=== PATIENT | female | born 1935 | race Caucasian/White ===

== ENCOUNTER 2018-08-21 22:18 | Inpatient (IN) | payer MEDICARE, OTHER ==
[~2018-08-21] VITALS: Ht 162.6 cm; Wt 69.6 kg
--- NOTE | 2018-08-21 22:31 | NUR ---
ED Nurse Note: [place] [facility] [place], c/c dizziness, per EMS report, security called 911 because pt was feeling dizzy and weak, initially ems assisted pt to home but pt was unable to walk to house and was brought to ED. pt reports she's been having dizziness for past 6 months. pt AA&ox4, gcs=15, skin warm and dry, resp even and unlabored on RA, noted urine on pants, possible urinary incontinence. vss. nsr on laboratory monitor, will wait for further orders.
[2018-08-21] MEDS ORDERED: Meclizine 25mg tab ORAL ONE (22:45)
[2018-08-21] MEDS ORDERED: Metoclopramide 10mg/2ml Inj IVP ONE (22:45)
[2018-08-21 22:50] VITALS: BP 120/61
--- NOTE | 2018-08-21 23:00 | NUR ---
ED Nurse Note: blood and urine specimen sent to lab.
[2018-08-21] MEDS ORDERED: Metoclopramide 10mg/2ml Inj ONE (23:02)
--- NOTE | 2018-08-21 23:05 | NUR ---
ED Nurse Note: RECEIVED PT FROM MAI GONZALEZ. PATIENT RESTING IN BED WITH NAD. VSS. AO4. EKG COMPLETED BY [employer]. WILL CONTINUE TO MONITOR.
--- NOTE | 2018-08-21 23:08 | NUR ---
ED Nurse Note: report given to RN Vamshi Tejada and endorse care, pt NSR on conveyor monitor, vss, resp even and unlabored on RA, iv intact and patent, endorsed EKG. belongings at the bedside. all safety precautions in place, pt was provided w/ extra blanket for comfort.
[2018-08-21 23:09] LABS: BASOPHILS % (AUTO) 1.1 % (0.0-2.0); EOSINOPHILS % (AUTO) 0.8 % (0.0-3.0); HEMATOCRIT 40.8 % (37.0-47.0); HEMOGLOBIN 13.7 G/DL (12.0-16.0); LYMPHOCYTES % (AUTO) 28.7 % (20.0-45.0); MEAN CORPUSCULAR VOLUME 88 FL (80-99); NEUTROPHILS % (AUTO) 63.4 % (45.0-75.0); PLATELET COUNT 234 K/UL (150-450); RED BLOOD COUNT 4.65 M/UL (4.20-5.40); RED CELL DISTRIBUTION WIDTH 12.2 % (11.6-14.8); WHITE BLOOD COUNT 9.6 K/UL (4.8-10.8)
[2018-08-21 23:10] LABS: APPEARANCE,URINE CLEAR; BILIRUBIN, URINE NEGATIVE (NEGATIVE); COLOR,URINE PALE YELLOW; GLUCOSE, URINE (UA) NEGATIVE (NEGATIVE); KETONES,URINE NEGATIVE (NEGATIVE); LEUKOCYTE ESTERASE ,URINE NEGATIVE (NEGATIVE); NITRITE,URINE NEGATIVE (NEGATIVE); PH,URINE 5 (4.5-8.0); PROTEIN,URINE NEGATIVE (NEGATIVE); UROBILINOGEN,URINE NORMAL MG/DL (0.0-1.0)
[2018-08-21 23:21] LABS: ANION GAP 7 mmol/L (5-15); BLOOD UREA NITROGEN 18 mg/dL (7-18); CALCIUM 9.2 MG/DL (8.5-10.1); CARBON DIOXIDE 27 MMOL/L (21-32); CHLORIDE 105 MMOL/L (98-107); CREATININE 0.6 MG/DL (0.55-1.30); POTASSIUM 4.3 MMOL/L (3.5-5.1); SODIUM 138 MMOL/L (136-145)
[2018-08-21 23:30] LABS: ALANINE AMINOTRANSFERASE 31 U/L (12-78); ALBUMIN 3.4 G/DL (3.4-5.0); ALBUMIN/GLOBULIN RATIO 0.9 (1.0-2.7); ALKALINE PHOSPHATASE 109 U/L (46-116); ASPARTATE AMINO TRANSFERASE 38 U/L (15-37); BILIRUBIN,TOTAL 0.5 MG/DL (0.2-1.0); CREATINE KINASE 110 U/L (26-308)
[2018-08-21 23:56] LABS: CKMB 2.8 NG/ML (0.0-3.6)
[2018-08-22] VITALS (7 sets, daily range): BP systolic 108–140; BP diastolic 48–90
--- NOTE | 2018-08-22 00:50 | Diagnostic Imaging Report ---
EXAM: CT Head Without Intravenous Contrast CLINICAL HISTORY: DIZZY TECHNIQUE: Axial computed tomography images of the head/brain without intravenous contrast. CTDI is 70 mGy and DLP is 1439 mGy-cm. One or more of the following dose reduction techniques were used: automated exposure control, adjustment of the mA and/or kV according to patient size, use of iterative reconstruction technique. COMPARISON: No relevant prior studies available. FINDINGS: Brain: No acute intracranial hemorrhage. Chronic small vessel ischemic changes. Right frontal chronic encephalomalacia. Cannot exclude [id number] ischemia on CT. Followup as clinically indicated. Ventricles: Unremarkable. No ventriculomegaly. Bones/joints: Right craniotomy. No acute fracture. Soft tissues: Unremarkable. Sinuses: Left maxillary sinus polyp or retention cyst. Mastoid air cells: Unremarkable as visualized. IMPRESSION: No acute intracranial hemorrhage or skull fracture.
--- NOTE | 2018-08-22 00:52 | Diagnostic Imaging Report ---
EXAM: XR Chest, 1 View CLINICAL HISTORY: DIZZY TECHNIQUE: Frontal view of the chest. COMPARISON: No relevant prior studies available. FINDINGS: Lungs: Left midlung and right lower lung mild pulmonary edema/infiltrates. Pleural space: Unremarkable. No pneumothorax. Heart: Unremarkable. No cardiomegaly. Mediastinum: Unremarkable. Bones/joints: Unremarkable. IMPRESSION: Left midlung and right lower lung mild pulmonary edema/infiltrates.
--- NOTE | 2018-08-22 01:05 | NUR ---
ED Nurse Note: lactic acid drawn; sent down to lab.
--- NOTE | 2018-08-22 01:45 | NUR ---
ED Nurse Note: UNABLE TO DRAW BLOOD X3. CALLED LAB FOR DRAW.
--- NOTE | 2018-08-22 01:56 | NUR ---
ED Nurse Note: lab at bedside
--- NOTE | 2018-08-22 02:40 | NUR ---
ED Nurse Note: belongings list completed with patient. witnessed by dre blackwood and security myron. pt unable to sign. pt belongings include: yellow ring, hat, scarf, pants, shoes.
--- NOTE | 2018-08-22 02:49 | NUR ---
ED Nurse Note: report given to galen urrutia rn. patient to be admitted to med surg 412-2 under the care of md haily.
--- NOTE | 2018-08-22 02:50 | NUR ---
ED Nurse Note: endorsed pt increasing confusion to receiving rn. per burnt lime drawer, pt room to be changed closer to station; med surg unit reassigning pt rooms; will call back with new room number.
[2018-08-22] MEDS ORDERED: LEVAQUIN750 MG ORAL (03:17)
[2018-08-22] MEDS ORDERED: DiphenhydrAMINE 50mg/ml Inj IVP ONE (03:45)
[2018-08-22] MEDS ORDERED: LORazepam Inj 2mg/ml 1ml IV ONE (03:45)
--- NOTE | 2018-08-22 03:45 | NUR ---
ED Nurse Note: pt increasingly agitated and physically combative. refuses to stay in chair or bed. remains dizzy; unstable gait. ertech remains with patient. ermd made aware.
--- NOTE | 2018-08-22 05:01 | NUR ---
ED Nurse Note: New IV placed on left wrist 22 ga.
--- NOTE | 2018-08-22 05:01 | NUR ---
TRANSFER TO FLOOR: Patient transferred to [place] [id number] as ordered, per md haily. report given prior to transfer. belongings list completed with receiving rn. patient in stable condition.
--- NOTE | 2018-08-22 05:03 | Emergency Room Report ---
History of Present Illness General Chief Complaint: Dizziness Source: Patient, EMS Present Illness HPI 83-year-old female presents ED for evaluation. Brought in by EMS for evaluation of dizziness. She states that she is been having dizziness for the last several months but was worse today after having dinner. Describes room spinning sensation worse with sudden head movements. Denies headache. Denies chest pain or shortness of breath. Denies fevers or chills. No other aggravating relieving factors. Denies any other associated symptoms Allergies: Coded Allergies: PENICILLINS (Unverified Allergy, Unknown, 08/21/18) Patient History Past Medical History: psych hx Past Surgical History: none Pertinent Family History: none Social History: Denies: smoking, alcohol use, drug use Now: No Immunizations: UTD Reviewed Nursing Documentation: PMH: Agreed; PSxH: Agreed Nursing Documentation-PMH History Of Psychiatric Problem: Yes - dementia Hx Cerebrovascular Accident: Yes - Glaucoma, dizzy Review of Systems All Other Systems: negative except mentioned in HPI Physical Exam Vital Signs Date Time Temp Pulse Resp B/P (MAP) Pulse Ox O2 Delivery O2 Flow Rate FiO2 08/21/18 22:13 97.5 80 16 106/88 (94) 95 Room Air Sp02 EP Interpretation: reviewed, normal General Appearance: no apparent distress, alert, GCS 15, non-toxic Head: normocephalic, atraumatic Eyes: bilateral eye normal inspection, bilateral eye PERRL ENT: hearing grossly normal, normal pharynx, no angioedema, normal voice Neck: full range of motion, supple/symm/no masses Respiratory: chest non-tender, lungs clear, normal breath sounds, speaking full sentences Cardiovascular #1: regular rate, rhythm, no edema Cardiovascular #2: 2+ carotid (R), 2+ carotid (L), 2+ radial (R), 2+ radial (L) , 2+ dorsalis pedis (R), 2+ dorsalis pedis (L) Gastrointestinal: normal bowel sounds, non tender, soft, non-distended, no guarding, no rebound Rectal: deferred Genitourinary: normal inspection, no CVA tenderness Musculoskeletal: back normal, gait/station normal, normal range of motion, non- tender Neurologic: alert, oriented x3, responsive, motor strength/tone normal, sensory intact, speech normal Psychiatric: judgement/insight normal, memory normal, mood/affect normal, no suicidal/homicidal ideation Reflexes: 3+ bicep (R), 3+ bicep (L), 3+ tricep (R), 3+ tricep (L), 3+ knee (R) , 3+ knee (L) Skin: normal color, no rash, warm/dry, well hydrated Lymphatic: no adenopathy Medical Decision Making Diagnostic Impression: Primary Impression: Vertigo Additional Impressions: Pneumonia Qualified Codes: J18.9 - Pneumonia, unspecified organism Dementia Qualified Codes: F03.91 - Unspecified dementia with behavioral disturbance ER Course Hospital Course 83 yo F presents c/o dizziness, weakness Differential diagnoses include: OK/unstable angina, arrythmia, dehydration, CVA/ TIA Clinical course Patient placed on stretcher. on case monitor. After initial history and physical I ordered labs, EKG, chest x-ray, IVFs, CT Brain labs reviewed- no leukocytosis, hemoglobin/hematocrit ok, electrolytes okay, troponins negative EKG- NSR, no acute ischemic changes interpreted by me Chest x-ray- L midlung, RLL infiltrates CT brain-unremarkable patient feels weak despite given medications. We will admit. Given antibiotics. during ED course patient became acutely confused. Stated she wanted to leave however cannot provide any details as to where she wanted to go or how she would get there. It appears like . She does not have capacity to leave safely. Given sedation medication here Case discussed with Dr. Ohara and he agreed to accept the patient to his service for further care and support I. I feel this is a highly complex case requiring extensive working including EKG/Rhythm strip, Xray/CT/US, Blood/urine lab work, repeat exams while in ED, and administration of strong opiates/narcotics for pain control, admission to hospital or close patient follow up. Diagnosis - vertigo, pneumonia, dementia admitted to floor in serious condition Labs Test 08/21/18 22:41 08/22/18 01:05 08/22/18 02:40 White Blood Count 9.6 K/UL (4.8-10.8) Red Blood Count 4.65 M/UL (4.20-5.40) Hemoglobin 13.7 G/DL (12.0-16.0) Hematocrit 40.8 % (37.0-47.0) Mean Corpuscular Volume 88 FL (80-99) Mean Corpuscular Hemoglobin 29.4 PG (27.0-31.0) Mean Corpuscular Hemoglobin Concent 33.5 G/DL (32.0-36.0) Red Cell Distribution Width 12.2 % (11.6-14.8) Platelet Count 234 K/UL (150-450) Mean Platelet Volume 6.1 FL (6.5-10.1) Neutrophils (%) (Auto) 63.4 % (45.0-75.0) Lymphocytes (%) (Auto) 28.7 % (20.0-45.0) Monocytes (%) (Auto) 6.0 % (1.0-10.0) Eosinophils (%) (Auto) 0.8 % (0.0-3.0) Basophils (%) (Auto) 1.1 % (0.0-2.0) Urine Color Pale yellow Urine Appearance Clear Urine pH 5 (4.5-8.0) Urine Specific [place] 1.010 (1.005-1.035) Urine Protein Negative (NEGATIVE) Urine Glucose (UA) Negative (NEGATIVE) Urine Ketones Negative (NEGATIVE) Urine Blood Negative (NEGATIVE) Urine Nitrite Negative (NEGATIVE) Urine Bilirubin Negative (NEGATIVE) Urine Urobilinogen Normal MG/DL (0.0-1.0) Urine Leukocyte Esterase Negative (NEGATIVE) Sodium Level 138 MMOL/L (136-145) Potassium Level 4.3 MMOL/L (3.5-5.1) Chloride Level 105 MMOL/L (98-107) Carbon Dioxide Level 27 MMOL/L (21-32) Anion Gap 7 mmol/L (5-15) Blood Urea Nitrogen 18 mg/dL (7-18) Creatinine 0.6 MG/DL (0.55-1.30) Estimat Glomerular Filtration Rate mL/min (>60) Glucose Level 89 MG/DL (74-106) Calcium Level 9.2 MG/DL (8.5-10.1) Total Bilirubin 0.5 MG/DL (0.2-1.0) Aspartate Amino Transf (AST/SGOT) 38 U/L (15-37) Alanine Aminotransferase (ALT/SGPT) 31 U/L (12-78) Alkaline Phosphatase 109 U/L (46-116) Total Creatine Kinase 110 U/L (26-308) Creatine Kinase MB 2.8 NG/ML (0.0-3.6) Creatine Kinase MB Relative Index 2.5 Troponin I 0.000 ng/mL (0.000-0.056) Total Protein 7.0 G/DL (6.4-8.2) Albumin 3.4 G/DL (3.4-5.0) Globulin 3.6 g/dL Albumin/Globulin Ratio 0.9 (1.0-2.7) Lactic Acid Level 2.80 mmol/L (0.4-2.0) 3.10 mmol/L (0.66-2.22) EKG Diagnostic Results Rate: normal Rhythm: NSR ST Segments: no acute changes ASA given to the pt in ED: No Rhythm Strip Diag. Results EP Interpretation: yes Rhythm: NSR, no PVC's, no ectopy Chest X-Ray Diagnostic Results Chest X-Ray Diagnostic Results : Chest X-Ray Ordered: Yes # of Views/Limited/Complete: 1 View Indication: Other EP Interpretation: Yes Interpretation: no pneumothorax, other - L midlung, RLL infiltrates Impression: Other - pneumonia Electronically Signed by: Electronically signed by Jeff Clinton MD CT/MRI/US Diagnostic Results CT/MRI/US Diagnostic Results : Imaging Test Ordered: CT Head Impression no acute process Last Vital Signs Date Time Temp Pulse Resp B/P (MAP) Pulse Ox O2 Delivery O2 Flow Rate FiO2 08/22/18 02:55 97.5 85 16 114/77 98 Room Air Status: improved Disposition: ADMITTED INPATIENT Condition: Serious Scripts Levofloxacin* (LEVAQUIN*) 750 Mg Tablet 750 MG ORAL DAILY for 7 Days, TAB Prov: Jeff Clinton MD 08/22/18 Referrals: NON PHYSICIAN (PCP) Jeff Clinton MD Aug 22, 2018 05:03
--- NOTE | 2018-08-22 05:15 | NUR ---
NURSE NOTES: Pt is transferred from ER in stable condition on [facility]. Vitals stable. Pt is confused but verbal. Skin intact. IV access on left fore arm is intact and asymptomatic. Dr. Montenegro's office is called for admission orders. Pt's belongings verified with witness of charge nurse Dimple Diaz.Pt refused to send valuables for safekeeping. Pt is oriented to the room. Pt is at risk for fall, Fall precaution implemented. Bed alarm on. Bed locked low in position,side rails up and call light within reach. Pt will be monitored.
--- NOTE | 2018-08-22 06:00 | NUR ---
NURSE NOTES: Pt is in bed, asleep. No acute distress noted. Dr. sharif Silva called back with admission orders. Orders acknowledged.
--- NOTE | 2018-08-22 07:25 | NUR ---
HAND-OFF: Report given to MAI Ghosh. Informed that pt is fall risk.
--- NOTE | 2018-08-22 07:30 | NUR ---
NURSE NOTES: Patient received in bed. Asleep at this time and patient wakes up with voice and touch. No signs and symptoms of pain or discomfort. IV intact with saline lock. Bed is in lowest position and locked. Call light within reach. Bed alarm on. Will continue to monitor
[2018-08-22 08:19] LABS: EOSINOPHILS % (AUTO) 0.5 % (0.0-3.0); HEMATOCRIT 40.9 % (37.0-47.0); HEMOGLOBIN 13.6 G/DL (12.0-16.0); LYMPHOCYTES % (AUTO) 13.4 % (20.0-45.0); MEAN CORPUSCULAR VOLUME 91 FL (80-99); NEUTROPHILS % (AUTO) 79.2 % (45.0-75.0); PLATELET COUNT 211 K/UL (150-450); RED BLOOD COUNT 4.48 M/UL (4.20-5.40); RED CELL DISTRIBUTION WIDTH 12.6 % (11.6-14.8); WHITE BLOOD COUNT 8.8 K/UL (4.8-10.8)
[2018-08-22 08:49] LABS: ALANINE AMINOTRANSFERASE 26 U/L (12-78); ALBUMIN 3.1 G/DL (3.4-5.0); ALKALINE PHOSPHATASE 102 U/L (46-116); ANION GAP 10 mmol/L (5-15); ASPARTATE AMINO TRANSFERASE 32 U/L (15-37); BILIRUBIN,TOTAL 0.5 MG/DL (0.2-1.0); BLOOD UREA NITROGEN 15 mg/dL (7-18); CARBON DIOXIDE 26 MMOL/L (21-32); CHLORIDE 106 MMOL/L (98-107); CREATININE 0.6 MG/DL (0.55-1.30); SODIUM 142 MMOL/L (136-145)
[2018-08-22] MEDS: Heparin 5000 units/ml inj SUBQ SCH ×2 (09:00→20:22)
--- NOTE | 2018-08-22 09:00 | NUR ---
NURSE NOTES: Unable to administer azithromycin and heparin. Patient opens her eyes to voice and touch but she falls asleep and not fully awake @ this time. Will continue to monitor.V/S stable.
[2018-08-22] MEDS ORDERED: Azithromycin 250mg tab ORAL SCH ×2 (09:15→15:30)
--- NOTE | 2018-08-22 13:43 | History and Physical ---
History of Present Illness General Date patient seen: Aug 22, 2018 Time patient seen: 09:00 Reason for Hospitalization: Dizziness Present Illness HPI 83-year-old female presents ED for evaluation. Brought in by EMS for evaluation of dizziness. She stated to the ED attending that she was having dizziness for the last several months but was worse last night after having dinner. Described room spinning sensation worse with sudden head movements. Denies headache. Denies chest pain or shortness of breath. Denies fevers or chills. No other aggravating relieving factors. Denies any other associated symptoms. in the ED, CT head was done and negative for acute pathology. CXR showed evidence of RLL infiltrate and Levofloxacin was given. Admission was requested. Today, the patient feels better and denies shortness of breath, fever or chills. Allergies: Coded Allergies: PENICILLINS (Unverified Allergy, Unknown, 08/21/18) Medication History Scheduled Levofloxacin* (Levaquin*), 750 MG ORAL DAILY Patient History Healthcare decision maker Resuscitation status Full Code Advanced Directive on File Review of Systems Neurological: Reports: dizziness Physical Exam General Appearance: WD/WN, no apparent distress Lines, tubes and drains: PICC HEENT: normocephalic, atraumatic Neck: non-tender Respiratory/Chest: chest wall non-tender, lungs clear Cardiovascular/Chest: normal rate, regular rhythm Abdomen: normal bowel sounds, soft Extremities: normal range of motion Skin Exam: normal pigmentation 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 Last 24 Hour Vital Signs Date Time Temp Pulse Resp B/P (MAP) Pulse Ox O2 Delivery O2 Flow Rate FiO2 08/22/18 12:00 98.7 77 15 117/54 (75) 95 08/22/18 09:00 Room Air 08/22/18 08:00 97.6 82 20 133/51 (78) 96 08/22/18 05:43 Room Air 08/22/18 05:29 98.9 99 20 140/90 (107) 97 08/22/18 05:01 97.5 76 14 108/69 99 Room Air 08/22/18 02:55 97.5 85 16 114/77 98 Room Air 08/22/18 00:34 97.5 68 14 109/76 100 Room Air 08/21/18 22:50 97.5 74 16 120/61 100 Room Air 08/21/18 22:50 74 18 Room Air 08/21/18 22:13 97.5 80 16 106/88 (94) 95 Room Air Intake and Output 08/21/18 08/22/18 19:00 07:00 Intake Total 240 ml Balance 240 ml Intake Oral 240 ml # Voids 2 Laboratory Tests Test 08/21/18 22:41 08/22/18 01:05 08/22/18 02:40 08/22/18 07:45 White Blood Count 9.6 K/UL (4.8-10.8) 8.8 K/UL (4.8-10.8) Red Blood Count 4.65 M/UL (4.20-5.40) 4.48 M/UL (4.20-5.40) Hemoglobin 13.7 G/DL (12.0-16.0) 13.6 G/DL (12.0-16.0) Hematocrit 40.8 % (37.0-47.0) 40.9 % (37.0-47.0) Mean Corpuscular Volume 88 FL (80-99) 91 FL (80-99) Mean Corpuscular Hemoglobin 29.4 PG (27.0-31.0) 30.4 PG (27.0-31.0) Mean Corpuscular Hemoglobin Concent 33.5 G/DL (32.0-36.0) 33.3 G/DL (32.0-36.0) Red Cell Distribution Width 12.2 % (11.6-14.8) 12.6 % (11.6-14.8) Platelet Count 234 K/UL (150-450) 211 K/UL (150-450) Mean Platelet Volume 6.1 FL (6.5-10.1) L 6.6 FL (6.5-10.1) Neutrophils (%) (Auto) 63.4 % (45.0-75.0) 79.2 % (45.0-75.0) H Lymphocytes (%) (Auto) 28.7 % (20.0-45.0) 13.4 % (20.0-45.0) L Monocytes (%) (Auto) 6.0 % (1.0-10.0) 6.0 % (1.0-10.0) Eosinophils (%) (Auto) 0.8 % (0.0-3.0) 0.5 % (0.0-3.0) Basophils (%) (Auto) 1.1 % (0.0-2.0) 1.0 % (0.0-2.0) Urine Color Pale yellow Urine Appearance Clear Urine pH 5 (4.5-8.0) Urine Specific [place] 1.010 (1.005-1.035) Urine Protein Negative (NEGATIVE) Urine Glucose (UA) Negative (NEGATIVE) Urine Ketones Negative (NEGATIVE) Urine Blood Negative (NEGATIVE) Urine Nitrite Negative (NEGATIVE) Urine Bilirubin Negative (NEGATIVE) Urine Urobilinogen Normal MG/DL (0.0-1.0) Urine Leukocyte Esterase Negative (NEGATIVE) Sodium Level 138 MMOL/L (136-145) 142 MMOL/L (136-145) Potassium Level 4.3 MMOL/L (3.5-5.1) 4.0 MMOL/L (3.5-5.1) Chloride Level 105 MMOL/L (98-107) 106 MMOL/L (98-107) Carbon Dioxide Level 27 MMOL/L (21-32) 26 MMOL/L (21-32) Anion Gap 7 mmol/L (5-15) 10 mmol/L (5-15) Blood Urea Nitrogen 18 mg/dL (7-18) 15 mg/dL (7-18) Creatinine 0.6 MG/DL (0.55-1.30) 0.6 MG/DL (0.55-1.30) Estimat Glomerular Filtration Rate mL/min (>60) mL/min (>60) Glucose Level 89 MG/DL (74-106) 83 MG/DL (74-106) Calcium Level 9.2 MG/DL (8.5-10.1) 9.0 MG/DL (8.5-10.1) Total Bilirubin 0.5 MG/DL (0.2-1.0) 0.5 MG/DL (0.2-1.0) Aspartate Amino Transf (AST/SGOT) 38 U/L (15-37) H 32 U/L (15-37) Alanine Aminotransferase (ALT/SGPT) 31 U/L (12-78) 26 U/L (12-78) Alkaline Phosphatase 109 U/L (46-116) 102 U/L (46-116) Total Creatine Kinase 110 U/L (26-308) Creatine Kinase MB 2.8 NG/ML (0.0-3.6) Creatine Kinase MB Relative Index 2.5 Troponin I 0.000 ng/mL (0.000-0.056) Total Protein 7.0 G/DL (6.4-8.2) 6.3 G/DL (6.4-8.2) L Albumin 3.4 G/DL (3.4-5.0) 3.1 G/DL (3.4-5.0) L Globulin 3.6 g/dL 3.2 g/dL Albumin/Globulin Ratio 0.9 (1.0-2.7) L 1.0 (1.0-2.7) Lactic Acid Level 2.80 mmol/L (0.4-2.0) H 3.10 mmol/L (0.66-2.22) H Height (Feet): 5 Height (Inches): 4.00 Weight (Pounds): 154 Medications Current Medications Medications (Trade) Dose Ordered Sig/Monica Route PRN Reason Start Time Stop Time Status Last Admin Dose Admin Heparin Sodium (Porcine) (Heparin 5000 units/ml) 5,000 units EVERY 12 HOURS SUBQ 08/22/18 09:00 09/21/18 08:59 Assessment/Plan Assessment/Plan: # Pneumonia CXR with RLL infiltrate. Patient home medication included levofloxacin which was given in the ED. Side effects of this medication include dizziness and will stop it to observe. Start Azithromycin Monitor clinical response. #Dizziness Negative CT head, PT evaluation for recommendations is needed. # Generalized weakness PT evaluation OT evaluation Might need support or transition to SNF if not safe to discharge home. # Penicillin allergy Geri Montgomery MD Aug 22, 2018 13:43
--- NOTE | 2018-08-22 15:00 | NUR ---
NURSE NOTES: Patient is fully awake and consumed late lunch without difficulties, no coughing, afebrile. Patient is ambulatory, unsteady, bed alarm is on and reminded patient to use call light.
--- NOTE | 2018-08-22 19:30 | NUR ---
NURSE NOTES: Pt is in bed, awake and verbal, vitals stable. Pt appears calm. Fall precaution in place. NS running at 100ml/hr. Bed locked low ion position,side rails up and call light within reach. Bed alarm on. Fall precautions implemented. Pt will be monitored.
--- NOTE | 2018-08-22 19:32 | NUR ---
HAND-OFF: Report given to Chris ONEILL.
[2018-08-23] VITALS: BP 139/60
--- NOTE | 2018-08-23 03:00 | NUR ---
NURSE NOTES: Pt is in bed, asleep. No acute distress noted. Pt is much more alert. Pt able to ambulate to the bedside commode with assist. Pt is tolerating pureed diet well.
[2018-08-23 04:00] VITALS: BP 152/67
--- NOTE | 2018-08-23 07:05 | NUR ---
HAND-OFF: Report given to MAI Ghosh.Informed that pt is fall risk.
--- NOTE | 2018-08-23 07:45 | NUR ---
NURSE NOTES: Received patient in bed,awake, alert and oriented x2 and patient is forgetful. Denies any pain or discomfort. Patient is calm and follows direction. Reminded patient to use a call light and bed alarm is on due to patient is forgetful. Bed is in lowest position and locked. Will continue plan of care.
[2018-08-23 08:00] VITALS: BP 137/75
[2018-08-23 08:45] LABS: BASOPHILS % (AUTO) 1.6 % (0.0-2.0); EOSINOPHILS % (AUTO) 1.3 % (0.0-3.0); HEMATOCRIT 39.7 % (37.0-47.0); HEMOGLOBIN 13.4 G/DL (12.0-16.0); LYMPHOCYTES % (AUTO) 35.8 % (20.0-45.0); MEAN CORPUSCULAR VOLUME 91 FL (80-99); MONOCYTES % (AUTO) 5.2 % (1.0-10.0); NEUTROPHILS % (AUTO) 56.2 % (45.0-75.0); PLATELET COUNT 215 K/UL (150-450); RED BLOOD COUNT 4.36 M/UL (4.20-5.40); RED CELL DISTRIBUTION WIDTH 12.7 % (11.6-14.8); WHITE BLOOD COUNT 6.1 K/UL (4.8-10.8)
[2018-08-23 09:00] LABS: ANION GAP 10 mmol/L (5-15); BLOOD UREA NITROGEN 14 mg/dL (7-18); CALCIUM 9.1 MG/DL (8.5-10.1); CARBON DIOXIDE 24 MMOL/L (21-32); CHLORIDE 105 MMOL/L (98-107); CREATININE 0.8 MG/DL (0.55-1.30); POTASSIUM 3.5 MMOL/L (3.5-5.1); SODIUM 139 MMOL/L (136-145)
[2018-08-23] MEDS: Heparin 5000 units/ml inj SUBQ SCH ×2 (09:00→20:25)
--- NOTE | 2018-08-23 09:00 | NUR ---
NURSE NOTES: Patient refused to take heparin and RN re-educated on med and patient understood and said I can walk and no pain so I do not need it now." Patient denies pain or discomfort on her leg, No SOB. Will continue to monitor.
[2018-08-23 12:00] VITALS: BP 157/82
--- NOTE | 2018-08-23 13:20 | NUR ---
NURSE NOTES: Patient requested regular food. Patient has her own teeth and alert and awake. RN spoke to Dr. Montgomery and received order to upgrade diet to regular soft easy chew. Patient also mention that she goes to [facility] pharmacy on and . RN followed with the pharmacy but the pharmacist said patient is not in the system. RN made Dr. Montgomery aware.
--- NOTE | 2018-08-23 13:40 | NUR ---
NURSE NOTES: Patient consumed food without any difficulty.
[2018-08-23] MEDS: Azithromycin 250mg tab ORAL SCH (13:45)
--- NOTE | 2018-08-23 13:49 | General Progress Note ---
Assessment/Plan Assessment/Plan: # Pneumonia CXR with RLL infiltrate. Patient home medication included levofloxacin which was given in the ED. Side effects of this medication include dizziness and will stop it to observe. Started Azithromycin 500 mg 08/22 and will continue 250 mg daily x4 Monitor clinical response. Likely, ready to transition home by tomorrow #Dizziness Negative CT head, PT evaluation She seems back to baseline and ambulatory on the floor today # Generalized weakness PT evaluation OT evaluation # Glaucoma Resume Latanoprost 1 gtt to each eye tonight # Penicillin allergy # FULL CODE # Disposition Lives in [address] B apt in [facility] Subjective ROS Limited/Unobtainable: Yes HEENT: Reports: other - requesting glaucoma eye drops Allergies: Coded Allergies: PENICILLINS (Unverified Allergy, Unknown, 08/21/18) Objective Last 24 Hour Vital Signs Date Time Temp Pulse Resp B/P (MAP) Pulse Ox O2 Delivery O2 Flow Rate FiO2 08/23/18 12:00 97.6 80 18 157/82 (107) 98 08/23/18 09:00 Room Air 08/23/18 08:00 97.6 72 18 137/75 (95) 97 08/23/18 04:00 97.3 72 18 152/67 (95) 97 08/23/18 00:00 98.4 65 18 139/60 (86) 97 08/22/18 21:00 Room Air 08/22/18 20:00 99.0 79 18 108/48 (68) 95 08/22/18 16:00 98.9 83 19 132/73 (92) 95 Intake and Output 08/22/18 08/23/18 19:00 07:00 Intake Total 100 ml 1840 ml Balance 100 ml 1840 ml Intake Oral 240 ml IV Total 100 ml 600 ml Other 1000 ml # Voids 3 Laboratory Tests 08/22/18 16:15: Lactic Acid Level 0.70 08/23/18 07:53: White Blood Count 6.1, Red Blood Count 4.36, Hemoglobin 13.4, Hematocrit 39.7, Mean Corpuscular Volume 91, Mean Corpuscular Hemoglobin 30.8, Mean Corpuscular Hemoglobin Concent 33.8, Red Cell Distribution Width 12.7, Platelet Count 215, Mean Platelet Volume 6.6, Neutrophils (%) (Auto) 56.2, Lymphocytes (%) (Auto) 35.8, Monocytes (%) (Auto) 5.2, Eosinophils (%) (Auto) 1.3, Basophils (%) (Auto ) 1.6, Sodium Level 139, Potassium Level 3.5, Chloride Level 105, Carbon Dioxide Level 24, Anion Gap 10, Blood Urea Nitrogen 14, Creatinine 0.8, Estimat Glomerular Filtration Rate , Glucose Level 147H, Calcium Level 9.1 Height (Feet): 5 Height (Inches): 4.00 Weight (Pounds): 154 General Appearance: WD/WN, no apparent distress EENT: PERRL/EOMI Neck: non-tender, normal alignment Cardiovascular: normal peripheral pulses, normal rate, regular rhythm Respiratory/Chest: chest wall non-tender, lungs clear Abdomen: normal bowel sounds 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
--- NOTE | 2018-08-23 15:30 | NUR ---
NURSE NOTES: Patient wants to ambulate the hallway, restlessness and patient is paranoid she thinks that people talk about her family issue. Patient is forgetful and noted with mood swing. RN assisted patient while ambulating and RN did complex emotional support and provide safe environment. Patient requested to be disconnected from the IV tubing. Dr. Montenegro's customer service consultant was paged. Awaiting for return call.
--- NOTE | 2018-08-23 16:00 | NUR ---
NURSE NOTES: RN spoke to Dr. Montgomery on the phone and relayed patient's condition and new order to give seroquel 25mg po Q8hr PRN for agitation and psych consult with Dr. Diaz. order read back and carried out.
--- NOTE | 2018-08-23 16:22 | NUR ---
NURSE NOTES: Patient refused to take antibiotic, patient is suspicious about the medication. RN re-educated on medication and mentioned that she needs antibiotic for infiltration and she took the same medication yesterday but patient refused to take medication and offered seroquel but also refused x3. Will continue to monitor.
--- NOTE | 2018-08-23 19:00 | NUR ---
NURSE NOTES: Rn informed Dr. Diaz for consult.
--- NOTE | 2018-08-23 19:22 | NUR ---
HAND-OFF: Report given to Chris.
--- NOTE | 2018-08-23 19:44 | NUR ---
NURSE NOTES: Pt is waking in the hallway, pt is paranoid, wanting to go home. Pt is confused and needs repeated reorientations. Pt able to speak and ambulate with walker. Pt was instructed sit in a chair near the nursing station because she refuses to stay in bed.Pt refused Meds during last shift.Social workers order in place to locate family. Pt is fall risk. Fall precaution implemented. Pt will be monitored.
[2018-08-23 20:00] VITALS: BP 153/87
[2018-08-23] MEDS ORDERED: OLANZapine 2.5mg tab ORAL PRN (22:30)
[2018-08-24] VITALS: BP 151/89
--- NOTE | 2018-08-24 01:30 | NUR ---
NURSE NOTES: Pt is in bed, asleep. No acute distress noted. Pt refuses to medications despite education and encouragement. Pt states " I don't take medications, I have to look up the medication before I take it". Fall precaution and elopement precaution in place.
--- NOTE | 2018-08-24 02:00 | Consultation ---
DATE OF CONSULTATION: 08/23/2018 HISTORY OF PRESENT ILLNESS: The patient is a 83-year-old female with a history of multiple medical problems including dementia and pneumonia. The patient is admitted due to dizziness. The patient has been confused, disoriented, . The patient's behavior is not redirectable. The patient is unable to understand, process, communicate, or appreciate the information presented to her in regard to her medical condition. PAST PSYCHIATRIC HISTORY: Dementia. PAST MEDICAL HISTORY: As above. ALLERGIES: Penicillin. SUBSTANCE ABUSE HISTORY: No known history of illicit drug use or alcohol. MENTAL STATUS EXAMINATION: The patient is alert and confused. Mood is agitated. Affect is constricted. Congruent with mood. Thought process is concrete. Thought content, no suicidal or homicidal ideation. ASSESSMENT: [place] I Dementia with behavior disturbance. [place] II Deferred. [place] III As above. [place] IV Low. [place] V 20. PLAN: 1. The patient will be started on Zyprexa standing and p.r.n. 2. We will discontinue the Seroquel and start the patient on Zyprexa. 3. Provide the patient with reality orientation. Dayday Diaz M.D. DR: VALENTINA JOB#: [id number] CC:
[2018-08-24 04:00] VITALS: BP 153/83
[2018-08-24 06:48] LABS: BASOPHILS % (AUTO) 1.5 % (0.0-2.0); EOSINOPHILS % (AUTO) 1.6 % (0.0-3.0); HEMATOCRIT 37.9 % (37.0-47.0); HEMOGLOBIN 12.7 G/DL (12.0-16.0); LYMPHOCYTES % (AUTO) 32.9 % (20.0-45.0); MEAN CORPUSCULAR VOLUME 91 FL (80-99); MONOCYTES % (AUTO) 6.9 % (1.0-10.0); NEUTROPHILS % (AUTO) 57.1 % (45.0-75.0); PLATELET COUNT 204 K/UL (150-450); RED BLOOD COUNT 4.19 M/UL (4.20-5.40); RED CELL DISTRIBUTION WIDTH 12.5 % (11.6-14.8); WHITE BLOOD COUNT 5.9 K/UL (4.8-10.8)
[2018-08-24 07:13] LABS: ANION GAP 8 mmol/L (5-15); BLOOD UREA NITROGEN 9 mg/dL (7-18); CALCIUM 9.4 MG/DL (8.5-10.1); CARBON DIOXIDE 26 MMOL/L (21-32); CHLORIDE 108 MMOL/L (98-107); CREATININE 0.6 MG/DL (0.55-1.30); POTASSIUM 3.7 MMOL/L (3.5-5.1); SODIUM 142 MMOL/L (136-145)
--- NOTE | 2018-08-24 07:30 | NUR ---
HAND-OFF: Report given to Ivan Meade RN.Informed that pt is fall risk and element risk.
[2018-08-24 08:00] VITALS: BP 134/67
--- NOTE | 2018-08-24 08:00 | NUR ---
NURSE NOTES: Received report from Chris RN, pt a/a/o seating in chair, pt also is able to ambulate around the room with steady gait. IV on the left wrist gauge#20 heplock. call light within reach. bed in lowest position, side rales up x2. plan to d/c home once social work msw is able to get hold of family. I will f/u as needed.
[2018-08-24] MEDS: Azithromycin 250mg tab ORAL SCH (08:57)
[2018-08-24] MEDS: Heparin 5000 units/ml inj SUBQ SCH ×2 (08:57→20:46)
--- NOTE | 2018-08-24 09:27 | NUR ---
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 PNA VS: BP 106/88. P 80, T 97.5, RR 16, SpO2 95 LACTIC ACID 3.10, AST 38 IS:ANTIVERT 50mg NS 500ml IV REGLAN 10mg ADMITTED TO MED/SURG DCP: RETURN TO HOME
--- NOTE | 2018-08-24 10:00 | NUR ---
NURSE NOTES: RN called 7th grade social studies teacher Barb to help located family for patient. pending d/c. I will f/u as needed.
--- NOTE | 2018-08-24 11:02 | NUR ---
SWALLOW/SPEECH THERAPY NOTE: REFERRED BY DR MCKEE FOR A SWALLOWING EVALUATION, SEE FULL REPORT IN [facility] ACTIVITY SECTION. DR. GRANGER FOLLOWING TODAY AND PRIMARY IS DR OLSEN. DYSPHAGIA RISK FACTORS FOR THIS 83 Y.O.F.: ACUTE ISSUES: DIZZINESS (FOR SEVERAL MONTHS) WORSE POST DINNER ON DATE OF ADMISSION. PNA (LEFT MIDLUNG AND RIGHT LL MILD PULMONARY EDEMA/INFILTRATE), H/O DEMENTIA WITH BEHAVIORAL DISTURBANCES, PSYCH ISSUES AND AT [facility] 08/2008 FOR BEHAVIORAL ISSUES). PER MD IN ER DOES NOT HAVE CAPACITY TO MAKE DECISION TO LIVE SAFELY. SEE PSYCHIATRIST, DR LIU'S REPORT (SHE IS CHANGING FROM SEROQUEL TO ZYPREXA). ON CT HEAD 08/22/18 CHRONIC SMALL VESSEL ISCHEMIC CHANGES AND HAD RIGHT FRONTAL CHRONIC ENCEPHALOMALACIA CANNOT EXCLUDE [id number] ISCHEMIC ON CT F/UP CLINICALLY INDICATED. NO POLST/AD REGARDING ARTIFICIAL NUTRITION. ON REGULAR TEXTURE DIET AND THIN LIQUIDS AT HOME. NO RD REPORT TO DATE. ON A SOFT CHEW DIET WITH 100% INTAKE. ALERT AND ABLE TO CONVERSE. HAD VARIABLE PROBLEMS WITH RECENT MEMORY. PER PATIENT, SHE HAS NO FAMILY MEMBERS. PER RN, PATIENT SAID SHE HAS A DAUGHTER IN [place] BUT SHE DOES NOT HAVE HER PHONE NUMBER (IN CELL PHONE AT HOME). PATIENT LIVES ALONE AND ADMITS TO MULTIPLE FALLS AND NEIGHBORS HELPING HER WHEN SHE FALLS. PER PATIENT, 4 YEARS AGO SHE FELL AND HIT HER HEAD AND WAS AT [facility] FOR A YEAR TO REHABILITATE. PATIENT DENIES PROBLEMS WITH PO INTAKE AND IS NOT ON ANY DIET RESTRICTIONS ALTHOUGH SHE TRIES TO CONSUME LESS SUGAR AND SALT. GOOD DENTITION. INITIAL IMPRESSIONS: GROSSLY FUNCTIONAL SWALLOW WITH ALL CONSISTENCIES OF THIN LIQUIDS (SEQUENTIAL SIPS OF 3 OZ OF WATER), PUREED (TSP), AND MASTICATED SOLID (CRACKER 1/2). 100% INTAKE. HAS SILENT ASPIRATION RISK GIVEN ACUTE PNA AND NEUROLOGICAL DEFICITS AND HISTORY. RECOMMENDATIONS: CONSIDER MOD BARIUM SWALLOW STUDY IP OR OP IF DC TO FURTHER EVAL SWALLOW, DETERMINE SILENT ASP RISK, AND ATTEMPT TRIAL TX TECHNIQUES. IF PO CONTINUES, CONSIDER CONTINUING WITH SOFT CHEW DIET AND THIN LIQUIDS FOR NOW. WILL OBSERVE MEALS TO DETERMINE IF ANY SPECIFIC ASP PREC ARE NEEDED. SKILLED DYSPHAGIA MANAGEMENT AND TX IF INDICATED PENDING MBSS COMPLETE COG-COM EVAL/TX D/W DR GRANGER AND DR LIU (PSYCHIATRIST) WHO AGREED WITH RECOMMENDATION. D/W RN TO WHO HAS CALLED [employer] DIVER REGARDING PATIENT'S LIVING SITUATION (AND NEED FOR A CG OR SUPERVISED FACILITY GIVEN HER H/O MULTIPLE FALLS AND MEMORY PROBLEMS). CONSIDER OBTAINING MEDICAL RECORDS FROM [facility] REGARDING PRIOR HOSPITAL STAY.
[2018-08-24 12:00] VITALS: BP 131/81
--- NOTE | 2018-08-24 13:26 | General Progress Note ---
Assessment/Plan Assessment/Plan: #Possible Pneumonia on CXR although no SIRS or respiratory symptoms -continue Levaquin for now #Dizziness Negative CT head, PT evaluation She seems back to baseline and ambulatory on the floor today #Generalized weakness #Cognitive impairment #Acute metabolic encephalopathy -Psychiatry eval appreciated -Neurology consult -business services assistant eval to attempt to contact family regarding dispo .I spent an additional 38 minutes on review of medical records including prior outside hospital records, consult notes, progress notes, procedures, imaging, labs, hemodynamics, and other clinical documentation. Subjective Date patient seen: Aug 24, 2018 Time patient seen: 09:15 ROS Limited/Unobtainable: Yes Constitutional: Denies: chills, fever Cardiovascular: Denies: chest pain Respiratory: Denies: cough Gastrointestinal/Abdominal: Denies: abdomen distended Genitourinary: Denies: burning Allergies: Coded Allergies: PENICILLINS (Unverified Allergy, Unknown, 08/21/18) Subjective Follow up for possible pneumonia and dementia, acute metabolic encephalopathy. Patient able to correctly state her address, but poor overall decision making capacity. [place] not to have capacity by psychiatry. Patient does not have contact info for her children. Denies cough, dyspnea, fever. Objective Last 24 Hour Vital Signs Date Time Temp Pulse Resp B/P (MAP) Pulse Ox O2 Delivery O2 Flow Rate FiO2 08/24/18 12:00 97.9 69 18 131/81 (98) 97 08/24/18 09:00 Room Air 08/24/18 08:00 98.5 62 18 134/67 (89) 96 08/24/18 04:00 98.4 65 18 153/83 (106) 96 08/24/18 00:00 98.7 80 18 151/89 (109) 98 08/23/18 21:00 Room Air 08/23/18 20:00 98.2 78 18 153/87 (109) 98 Intake and Output 08/23/18 08/24/18 19:00 07:00 Intake Total 1200 ml 400 ml Balance 1200 ml 400 ml Intake Oral 400 ml IV Total 400 ml Other 800 ml # Voids 4 Laboratory Tests 08/24/18 06:10: White Blood Count 5.9, Red Blood Count 4.19L, Hemoglobin 12.7, Hematocrit 37.9, Mean Corpuscular Volume 91, Mean Corpuscular Hemoglobin 30.3, Mean Corpuscular Hemoglobin Concent 33.4, Red Cell Distribution Width 12.5, Platelet Count 204, Mean Platelet Volume 7.1, Neutrophils (%) (Auto) 57.1, Lymphocytes (%) (Auto) 32.9, Monocytes (%) (Auto) 6.9, Eosinophils (%) (Auto) 1.6, Basophils (%) (Auto ) 1.5, Sodium Level 142, Potassium Level 3.7, Chloride Level 108H, Carbon Dioxide Level 26, Anion Gap 8, Blood Urea Nitrogen 9, Creatinine 0.6, Estimat Glomerular Filtration Rate , Glucose Level 111H, Calcium Level 9.4 Height (Feet): 5 Height (Inches): 4.00 Weight (Pounds): 154 General Appearance: no apparent distress, alert, other - Cognitive impairment Neck: normal alignment, supple Cardiovascular: normal rate, regular rhythm Respiratory/Chest: lungs clear, normal breath sounds Abdomen: non tender, soft Servando Odell MD Aug 24, 2018 13:26
--- NOTE | 2018-08-24 13:35 | NUR ---
Social Service Note SW met with patient to obtain history prior to hospitalization and to obtain next of kin information. Patient provider her name Mallory Andrade, 1935, #[id number]. Patient states she resides at [address] [place]. Patient denies recent falls as indicated by what she said to nursing. Patient refuses to provide SW next of kin or contact information. Patient states her cell phone [phone] is at home and she is unable to recall phone numbers. SW informed patient that SW could complete a skip trace however patient continued to decline to provide dgt's and son's information. Patient states her dgt has multiple medical issues and wouldn't want SW to upset her and her son is just waiting for her to to inherent her small fortune. Patient did provide her PCP Dr. Beba Lemus [phone], patient has not been in the office since Feb 2018, and missed last scheduled appointment a few weeks ago and had an appointment for today. Office provided next of kin listed on file Osiris Fontanez (sister) [phone]. Unable to leave a message at this time.SW completed a skip trace and located an alternative number for Osiris Fontanez [phone] and possible nephew Gorge Fontanez [phone]. no return call at this time. Follow up appointment arranged with PCP for Saturday 08/26 at 8am. SW left messages at [facility] [phone] in both the leasing department and administration. Patient is not agreeable to placement. Patient showed SW apartment keys. Recommend home health to follow with nursing and PT if returning home. APS report can be completed as well. Will continue to monitor and assists.
--- NOTE | 2018-08-24 15:35 | NUR ---
P.T NOTE: P.T evaluation completed and treatment initiated. Please refer to P.T evaluation for current functional status. Pt presented generalized weakness affecting overall functional mobility performance and safety. Pt should benefit from skilled P.T service to improve her strength , balance and endurance to improve her functional mobility independence and safety. Pt would benefit from SNF for short term rehab or home P.T for safety follow up. DME to include [facility]. Addendum: 08/24/18 at 1535 by KASSI BARAKAT PT Amended: Links added. Addendum: 08/24/18 at 1554 by KASSI BARAKAT PT Pt would also benefit from in-home support if she will be DC'd to home.
[2018-08-24] MEDS ORDERED: OLANZapine 2.5mg tab ORAL PRN (17:00)
--- NOTE | 2018-08-24 19:48 | NUR ---
HAND-OFF: Report given to Kalee NOEILL, pt in stable condition.
[2018-08-24 20:00] VITALS: BP 121/71
--- NOTE | 2018-08-24 20:00 | NUR ---
NURSE NOTES: Patient received sitting on the side of the bed, no complaints of pain or discomfort at this time. Patient is disrobed with her hospital gown by the bed, covering herself with the blankets. Offered to help patient put the hospital gown back on but patient refused. Also offered to put yellow socks on patient, explained to patient re fall risk, patient refused and stated she will put it on herself if she wants to. Call light provided for patient and instructed to call for assistance. Will continue close monitoring.
[2018-08-24] MEDS: OLANZapine 2.5mg tab ORAL SCH (20:46)
--- NOTE | 2018-08-24 21:00 | NUR ---
NURSE NOTES: Patient refused scheduled medication, attempted to educate patient regarding medication but patient changed topic of conversation and continued to refuse medication.
--- NOTE | 2018-08-24 23:44 | Consultation ---
History of Present Illness General Date patient seen: Aug 24, 2018 Chief Complaint: Dizziness Referring physician: Dr. Montenegro Present Illness HPI Mallory Andrade is a 83-year-old female with a PMH of falls and traumatic ICH with right craniectomy, who presented to [facility] [place] [place] ED via EMS for a complaint of dizziness on August 22, 2018. She stated to the ED attending that she was having dizziness for the last several months but was worse the prior night after having dinner. Described room spinning sensation worse with sudden head movements. She denied headache, nausea, light sensitivity and vomiting. in the ED, CT head was done and negative for acute pathology. CXR showed evidence of RLL infiltrate and Levofloxacin was given. Allergies: Coded Allergies: PENICILLINS (Unverified Allergy, Unknown, 08/21/18) Medication History Scheduled Latanoprost* (Xalatan*), 1 DROP BOTH EYES BEDTIME Levofloxacin* (Levaquin*), 750 MG ORAL DAILY Olanzapine (Olanzapine), 2.5 MG ORAL BEDTIME Patient History Healthcare decision maker Resuscitation status Full Code Advanced Directive on File Past Medical/Surgical History Past Medical/Surgical History: (1) History of intracerebral hemorrhage without residual deficit (2) Dementia Review of Systems Constitutional: Denies: no symptoms, see HPI, chills, sweats, fever, malaise, weakness, other Eye: Denies: no symptoms, see HPI, eye pain, blurred vision, tearing, double vision, nose pain, nose congestion, acuity changes, discharge, other ENT: Denies: no symptoms, see HPI, ear pain, ear discharge, nose pain, nose congestion, throat pain, throat swelling, mouth pain, hearing loss, nasal discharge, other Respiratory: Denies: no symptoms, see HPI, cough, orthopnea, shortness of breath, stridor, wheezing, L[place], sputum, other Cardiovascular: Denies: no symptoms, see HPI, chest pain, edema, palpitations, syncope, PND, other Gastrointestinal: Denies: no symptoms, see HPI, abdominal pain, constipation, diarrhea, nausea, vomiting, melena, hematemesis, other Genitourinary: Denies: no symptoms, see HPI, discharge, dysuria, frequency, hematuria, pain, retention, incontinence, urgency, vag bleed/dc, other Musculoskeletal: Denies: no symptoms, see HPI, back pain, gout, joint pain, joint swelling, muscle pain, muscle stiffness, other Skin: Denies: no symptoms, see HPI, rash, change in color, change in hair/nails , dryness, lesions, other Psychiatric: Denies: no symptoms, see HPI, prior hx, anxiety, depressed feelings, emotional problems, SI, HI, hallucinations, other Neurological: Reports: headache, dizziness; Denies: no symptoms, see HPI, numbness, paresthesia, seizure, tingling, tremors, focal weakness, syncope, other Endocrine: Denies: no symptoms, see HPI, excessive sweating, flushing, intolerance to temperature, increased thirst, increased urine, unexplained weight loss, other Hematologic/Lymphatic: Denies: no symptoms, see HPI, anemia, blood clots, easy bleeding, easy bruising, swollen glands, diathesis, other Physical Exam General Appearance: WD/WN, no apparent distress, alert, confused, overweight Lines, tubes and drains: peripheral HEENT: normocephalic, atraumatic, anicteric, mucous membranes moist, PERRL, EOMI, pharynx normal, supple, no JVD Neck: non-tender, normal alignment, supple, normal inspection, abnormal alignment Respiratory/Chest: normal breath sounds, no respiratory distress, no accessory muscle use Cardiovascular/Chest: normal peripheral pulses, no JVD Abdomen: non tender Extremities: non-tender, normal inspection, no calf tenderness, normal capillary refill, non-pitting Skin Exam: normal pigmentation, warm/dry, no diaphoresis 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, no motor/sensory deficits, abnormal gait , alert, responsive, motor weakness, disoriented Musculoskeletal: normal muscle bulk Physical Exam Narrative Patient is alert and oriented but with waxing / waning confusion She is ambulatory at baseline with mild left facial weakness at rest but equal symmetrical facial movements - Last 24 Hour Vital Signs Date Time Temp Pulse Resp B/P (MAP) Pulse Ox O2 Delivery O2 Flow Rate FiO2 08/24/18 21:00 Room Air 08/24/18 20:00 99.4 85 19 121/71 (88) 96 08/24/18 12:00 97.9 69 18 131/81 (98) 97 08/24/18 09:00 Room Air 08/24/18 08:00 98.5 62 18 134/67 (89) 96 08/24/18 04:00 98.4 65 18 153/83 (106) 96 08/24/18 00:00 98.7 80 18 151/89 (109) 98 Intake and Output 08/23/18 08/24/18 19:00 07:00 Intake Total 1200 ml 400 ml Balance 1200 ml 400 ml Intake Oral 400 ml IV Total 400 ml Other 800 ml # Voids 4 Laboratory Tests Test 08/24/18 06:10 White Blood Count 5.9 K/UL (4.8-10.8) Red Blood Count 4.19 M/UL (4.20-5.40) L Hemoglobin 12.7 G/DL (12.0-16.0) Hematocrit 37.9 % (37.0-47.0) Mean Corpuscular Volume 91 FL (80-99) Mean Corpuscular Hemoglobin 30.3 PG (27.0-31.0) Mean Corpuscular Hemoglobin Concent 33.4 G/DL (32.0-36.0) Red Cell Distribution Width 12.5 % (11.6-14.8) Platelet Count 204 K/UL (150-450) Mean Platelet Volume 7.1 FL (6.5-10.1) Neutrophils (%) (Auto) 57.1 % (45.0-75.0) Lymphocytes (%) (Auto) 32.9 % (20.0-45.0) Monocytes (%) (Auto) 6.9 % (1.0-10.0) Eosinophils (%) (Auto) 1.6 % (0.0-3.0) Basophils (%) (Auto) 1.5 % (0.0-2.0) Sodium Level 142 MMOL/L (136-145) Potassium Level 3.7 MMOL/L (3.5-5.1) Chloride Level 108 MMOL/L (98-107) H Carbon Dioxide Level 26 MMOL/L (21-32) Anion Gap 8 mmol/L (5-15) Blood Urea Nitrogen 9 mg/dL (7-18) Creatinine 0.6 MG/DL (0.55-1.30) Estimat Glomerular Filtration Rate mL/min (>60) Glucose Level 111 MG/DL (74-106) H Calcium Level 9.4 MG/DL (8.5-10.1) Height (Feet): 5 Height (Inches): 4.00 Weight (Pounds): 154 Medications Current Medications Medications (Trade) Dose Ordered Sig/Monica Route PRN Reason Start Time Stop Time Status Last Admin Dose Admin Azithromycin (Zithromax) 250 mg DAILY ORAL 08/23/18 13:45 08/26/18 09:01 08/24/18 08:57 Heparin Sodium (Porcine) (Heparin 5000 units/ml) 5,000 units EVERY 12 HOURS SUBQ 08/22/18 09:00 09/21/18 08:59 08/22/18 20:22 Olanzapine (ZyPREXA) 2.5 mg BEDTIME ORAL 08/24/18 21:00 09/23/18 20:59 Olanzapine (ZyPREXA) 2.5 mg BEDTIME PRN ORAL agitation 08/23/18 22:30 09/22/18 22:29 Olanzapine (ZyPREXA) 2.5 mg Q4H PRN ORAL Agitation 08/24/18 17:00 09/23/18 16:59 Assessment/Plan Problem List: (1) Dementia ICD Codes: F03.90 - Unspecified dementia without behavioral disturbance SNOMED: 00040700 Qualifiers: Qualified Codes: F03.91 - Unspecified dementia with behavioral disturbance (2) Vertigo ICD Codes: R42 - Dizziness and giddiness SNOMED: 485517760 (3) Pneumonia ICD Codes: J18.9 - Pneumonia, unspecified organism SNOMED: 155862352 Qualifiers: Qualified Codes: J18.9 - Pneumonia, unspecified organism Status: stable Assessment/Plan: Hx of prior Traumatic ICH and Residual Contralateral deficits Q4 Hour Neuro Obs Prevent delirium with maintenance of sleep hygiene and frequent PT/ ambulation as able Frequent re-orientation PT Eval Meclizine 25mg PRN Q8 hrs Na 135-145 Maintain normoglycemia with ISS Maintain normothermia Check TSH Check HGBA1c Nilsa Mac N.P. Aug 24, 2018 23:44
[2018-08-25] VITALS: BP 130/73
--- NOTE | 2018-08-25 02:00 | Progress Note ---
DATE: 08/24/2018 NOTE: INCOMPLETE DICTATION The patient was seen in the morning. She was alert and oriented x4, was logical, and was able to answer the questions logically. She stated she would like to be discharged home. She refused to go to a penitentiary. Dayday Diaz M.D. DR: VALENTINA JOB#: [id number] CC:
--- NOTE | 2018-08-25 03:57 | Neurology Progress Note ---
Interim History Interim History ROS Limited/Unobtainable: Yes Complaints: Dizziness Events: This visit was conducted on August 25, [address] Moi Oakley. Interim History Dizziness resolved but some confusion secondary to poor memory. She is nonfocal and ambulatory. Objective Physical Exam Last Vital Signs Date Time Temp Pulse Resp B/P (MAP) Pulse Ox O2 Delivery O2 Flow Rate FiO2 08/25/18 00:00 99.0 79 18 130/73 (92) 96 08/24/18 21:00 Room Air Laboratory Tests Test 08/24/18 06:10 White Blood Count 5.9 K/UL (4.8-10.8) Red Blood Count 4.19 M/UL (4.20-5.40) L Hemoglobin 12.7 G/DL (12.0-16.0) Hematocrit 37.9 % (37.0-47.0) Mean Corpuscular Volume 91 FL (80-99) Mean Corpuscular Hemoglobin 30.3 PG (27.0-31.0) Mean Corpuscular Hemoglobin Concent 33.4 G/DL (32.0-36.0) Red Cell Distribution Width 12.5 % (11.6-14.8) Platelet Count 204 K/UL (150-450) Mean Platelet Volume 7.1 FL (6.5-10.1) Neutrophils (%) (Auto) 57.1 % (45.0-75.0) Lymphocytes (%) (Auto) 32.9 % (20.0-45.0) Monocytes (%) (Auto) 6.9 % (1.0-10.0) Eosinophils (%) (Auto) 1.6 % (0.0-3.0) Basophils (%) (Auto) 1.5 % (0.0-2.0) Sodium Level 142 MMOL/L (136-145) Potassium Level 3.7 MMOL/L (3.5-5.1) Chloride Level 108 MMOL/L (98-107) H Carbon Dioxide Level 26 MMOL/L (21-32) Anion Gap 8 mmol/L (5-15) Blood Urea Nitrogen 9 mg/dL (7-18) Creatinine 0.6 MG/DL (0.55-1.30) Estimat Glomerular Filtration Rate mL/min (>60) Glucose Level 111 MG/DL (74-106) H Calcium Level 9.4 MG/DL (8.5-10.1) General: well developed, well nourished, no acute distress Head: normocophalic, atraumatic Neck: no rigidity EENT: benign Neurologic Exam Mental Status: awake, alert, normal remote memory, preserved visuospatial function, other Speech: normal speech, no dysarthia Language: normal language, no aphasia Cranial Nerve II: fundus normal, visual pearl, no papilledema Cranial Nerves III, IV, : PERRLA, EOMI, pupils Cranial Nerve V: normal facial sensations, temporales function normal, masseters function normal, pterygoids function normal Cranial Nerve VII: no facial asymmetry, normal facial expressions Cranial Nerve VIII: normal hearing, no nystagmus Cranial Nerve IX: normal palate elevation, gag response Cranial Nerve X: no voice hoarseness Cranial Nerve XI: SCM symmetric, trapezii function normal Cranial Nerve XII: tongue midline, no tongue atrophy/fasciculations Motor System: normal muscle tone, strength 5/5, no involuntary movement, no muscle wasting Sensory: normal pinprick, normal light touch, normal position sense, normal graphesthesia Coordination: normal finger to nose bilaterally, normal heel to tirado bilaterally, negative Romberg test Deep Tendon Reflexes: 2+ bicep (L), 2+ bicep (R), 2+ tricep (L), 2+ tricep (R) , 2+ brachioradialis (L), 2+ brachioradialis (R), 2+ knee (L), 2+ knee (R), 2+ ankle (L), 2+ ankle (R) Stance: normal Gait: stable, normal regular, heel + toe gait Objective Very mild left residual deficits from prior traumatic ICH Impression/Recommendations Problems: (1) Dementia (2) Vertigo (3) Pneumonia (4) Acute metabolic encephalopathy (5) History of intracerebral hemorrhage without residual deficit Recommendations Continue Q 4 neuro Obs Na 135-145 PT Eval SBP< 140 Meclizine PRN for dizziness - 25mg PO TID PRN MRI negative for acute findings Nilsa Mac N.P. Aug 25, 2018 03:57
[2018-08-25] MEDS ORDERED: Meclizine 25mg tab ORAL PRN (04:00)
--- NOTE | 2018-08-25 07:27 | NUR ---
HAND-OFF: Report given to Glory ONEILL.
--- NOTE | 2018-08-25 07:30 | NUR ---
NURSE NOTES: Received pt from RN JOANN. Pt is confused and orient x3. pt is RA, No SOB or acute respiratory distress noted. Pt has intact iv access 22g SL. all needs attended, bed is locked and is in the lowest position. call light within easwy reach. will continue to monitor.
[2018-08-25 08:00] VITALS: BP 121/61
[2018-08-25] MEDS: Azithromycin 250mg tab ORAL SCH (08:46)
[2018-08-25] MEDS: Heparin 5000 units/ml inj SUBQ SCH ×2 (08:48→20:44)
--- NOTE | 2018-08-25 11:16 | General Progress Note ---
Assessment/Plan Assessment/Plan: #Possible Pneumonia on CXR although no SIRS or respiratory symptoms -discontinue Levaquin #Dizziness Negative CT head, PT evaluation She seems back to baseline and ambulatory on the floor today #Generalized weakness #Cognitive impairment #Acute metabolic encephalopathy -Psychiatry eval appreciated -Neurology consult appreciated -MRI brain pedning -SNF referral Subjective Date patient seen: Aug 25, 2018 Time patient seen: 11:10 ROS Limited/Unobtainable: Yes Constitutional: Denies: fever Cardiovascular: Denies: chest pain Respiratory: Denies: cough Gastrointestinal/Abdominal: Denies: abdomen distended, abdominal pain Allergies: Coded Allergies: PENICILLINS (Unverified Allergy, Unknown, 08/21/18) Subjective Follow up for possible pneumonia and dementia, acute metabolic encephalopathy. Mentation improved, less confused. More cooperative. Seen by Neurology, MRI brain Objective Last 24 Hour Vital Signs Date Time Temp Pulse Resp B/P (MAP) Pulse Ox O2 Delivery O2 Flow Rate FiO2 08/25/18 09:00 Room Air 08/25/18 08:00 98.9 72 16 121/61 (81) 96 08/25/18 00:00 99.0 79 18 130/73 (92) 96 08/24/18 21:00 Room Air 08/24/18 20:00 99.4 85 19 121/71 (88) 96 08/24/18 12:00 97.9 69 18 131/81 (98) 97 Intake and Output 08/24/18 08/25/18 18:59 06:59 Intake Total 500 ml 360 ml Balance 500 ml 360 ml Intake Oral 500 ml 360 ml # Voids 4 Height (Feet): 5 Height (Inches): 4.00 Weight (Pounds): 154 General Appearance: no apparent distress, alert Neck: normal alignment, supple Cardiovascular: normal rate, regular rhythm Respiratory/Chest: lungs clear, normal breath sounds Abdomen: non tender, soft Servando Odell MD Aug 25, 2018 11:16
[2018-08-25 11:54] VITALS: BP 120/69
--- NOTE | 2018-08-25 13:37 | NUR ---
DISCHARGE PLANNING FAXED REFERRAL TO [facility] f- [phone] WILL FOLLOW UP Addendum: 08/25/18 at 1427 by Urszula Funez LVN [facility] WILL ACCEPT PATIENT ONCE DISCHARGED
--- NOTE | 2018-08-25 15:09 | Cardiology Report ---
APPROVED REPORT EKG Measurement Heart [id number] Normal sinus rhythm Normal ECG
--- NOTE | 2018-08-25 15:36 | NUR ---
Social Service Note SW didn't receive a return call from possible sister Osiris Fontanez [phone] or nephew Gorge Fontanez [phone]. JOSE placed multiple calls to Maria Elena Reaves [phone] regarding listed next of kin on lease, they are looking into this. JOSE followed up with missing persons [phone] and patient is listed as missing. Will continue to monitor and follow up.
[2018-08-25 16:00] VITALS: BP 118/66
--- NOTE | 2018-08-25 16:43 | NUR ---
COMMUNICATIONS CONSULTANT NOTES SPOKE TO PATIENT ABOUT GOING TO [facility] AND PATIENT AGREED
--- NOTE | 2018-08-25 17:14 | Diagnostic Imaging Report ---
Indication: Dizziness Technique: The head was imaged in a 1.5 Janis magnet. Sequences obtained include sagittal and axial T1 FLAIR, axial T2 fast spin echo with fat saturation, axial T2 FLAIR, diffusion and ADC map. Comparison: None Heterogeneity of the calvarium on the right noted consistent with prior craniotomy. There is encephalomalacia present within the right frontal and temporal lobe. Generalized atrophy of the brain is noted. There is no diffusion restriction. Periventricular T2 hyperintensity noted consistent chronic small vessel disease. No mass effect, edema or hemorrhage identified. Band transversely oriented about the right globe noted consistent previous surgery. Fluid retention cysts noted in the left maxillary sinus. Corpus callosum and sella appear unremarkable. Bone marrow signal appears normal. IMPRESSION: No acute CVA, mass effect or edema. Previous right craniotomy. Mild underlying encephalomalacia. Generalized atrophy of the brain Evidence of chronic small vessel disease involving white matter. Left maxillary fluid retention cyst
--- NOTE | 2018-08-25 19:30 | NUR ---
HAND-OFF: Report given to MAI MORALES.
--- NOTE | 2018-08-25 19:30 | NUR ---
Nurse Notes. received report from Glory. Pt awake alert x4. pt on room air vitals WNL. no acute distress noted. Pt denies pain, chest pain dizziness. SOB at this time.IV patent no infiltration noted. Pt able to walk the room independently no fall incidents. fall precautions implemented. Pt in room sitting in chair. call light in reach. will continue to monitor patient condition
[2018-08-25 20:00] VITALS: BP 132/60
[2018-08-25] MEDS: OLANZapine 2.5mg tab ORAL SCH (20:43)
[2018-08-25] MEDS: Latanoprost 0.005% Opth 2.5ml Soln BOTH EYES SCH (20:52)
--- NOTE | 2018-08-25 22:15 | Progress Note ---
DATE: 08/25/2018 SUBJECTIVE: The patient is calm, cooperative, answers the questions appropriately. No behavior issues. The patient is getting more confused, agitated at night. Not able to be engaged during the evaluation at night. The patient agreed today that she would follow the primary doctor's recommendation. MENTAL STATUS EXAMINATION: The patient is alert, oriented times self, place, and situation. Mood is neutral. Affect is full range, congruent with mood. Thought process is concrete. Thought content, no suicidal or homicidal ideation. Memory is impaired. Insight and judgment is fair. ASSESSMENT: Dementia, mild; encephalopathy. PLAN: 1. We will continue the current medication. 2. The patient benefits from placement in rehab or SNF. The patient agreed for short time. Dayday Diaz M.D. DR: ALEXI JOB#: [id number] CC:
[2018-08-26] VITALS: BP 105/63
--- NOTE | 2018-08-26 05:56 | NUR ---
NURSE NOTES: Received report from outgoing nurse Nasrin ONEILL. Patient in bed asleep. No signs of distress noted. Bed is locked and in low position. In stable condition.
--- NOTE | 2018-08-26 07:09 | NUR ---
Santos, the patients son called returning Alexey call, he left the best telephone number where he can be reached, , message left for Barb.
--- NOTE | 2018-08-26 07:30 | NUR ---
NURSE NOTES: Received pt from [facility]I SUERO. Pt is confused and orient x3. pt is RA, No SOB or acute respiratory distress noted. Pt has intact iv access LH 22g SL. all needs attended, bed is locked and is in the lowest position. call light within easy reach. will continue to monitor.
[2018-08-26 08:00] VITALS: BP 113/68
--- NOTE | 2018-08-26 08:30 | NUR ---
Social Service Note SW spoke with patient's son Santos Christy [phone]. Bakari states patient has dementia but has been functional at home. This is the first event where she was unable to get back to her home when out and about. Son states patient is a hoarder and doesn't like to have a lot of people in her home. Son is agreeable to SNF however believes patient will not be in agreement. Son states patient makes claims that he is attempting to steal her fortune. Son states he hired an quill stripper because patient was bad financial shape and was losing her savings. Son states his sister has mental illness and resides in a facility. Son states if patient will not be in agreement with placement he would assist in locating a caregiver. Will continue to monitor and will discuss with MD.
[2018-08-26] MEDS: Heparin 5000 units/ml inj SUBQ SCH ×3 (09:00→20:14)
[2018-08-26] MEDS: Azithromycin 250mg tab ORAL SCH (09:04)
[2018-08-26] MEDS ORDERED: OLANZAPINE2.5 MG ORAL (09:16)
[2018-08-26] MEDS ORDERED: XALATAN2.5 ML BOTH EYES (09:16)
--- NOTE | 2018-08-26 09:23 | Discharge Summary ---
Discharge Summary Hospital Course Date of Admission Aug 22, 2018 at 02:00 Date of Discharge 08/26/18 Admitting Diagnosis weakness, pneumonia HPI Mallory Andrade is a 83 year old female who was admitted on Aug 22, 2018 at 02 :00 for Dizziness Consultations Neurology,Psychiatry Hospital Course Patient presented with weakness, confusion with findings of possible pneumonia on CXR. Admitted to medical service, treated with Levaquin and completed 5 days. No evidence of SIRS or respiratory failure. Seen by Neurology and Psychiatry for cognitive impairment with behavioral disturbance. MRI brain was negative. Started on Zyprexa at bedtime with improvement in behavioral disturbance. She will be discharged to [facility] for physical therapy and rehab. Spoke with son Santos [phone] Discharge Instructions: PCP follow up 1 week Discharge Diagnosis #Possible Pneumonia on CXR although no SIRS or respiratory symptoms #Dizziness Negative CT head an MRI PT evaluation #Generalized weakness #Cognitive impairment #Acute metabolic encephalopathy -Psychiatry eval appreciated -Neurology consult appreciated Time spent preparing discharge was 35 minutes Discharge Medications New Medications: Latanoprost* (Xalatan*) 2.5 Ml Drops 1 DROP BOTH EYES BEDTIME for 30 Days, #30 ML Olanzapine (Olanzapine) 2.5 Mg Tablet 2.5 MG ORAL BEDTIME for 30 Days, #30 TAB Discharge Condition Upon Discharge: stable Discharge Disposition Patient was discharged to SNF Discharge Diagnoses: (1) Acute metabolic encephalopathy (2) Pneumonia Servando Odell MD Aug 26, 2018 09:23
[2018-08-26 12:00] VITALS: BP 126/80
--- NOTE | 2018-08-26 12:18 | NUR ---
NURSE NOTES: Pt refused to go SNF, Dr GRANGER and BATCH ATTENDANT loren ARE AWARE. WILL CONTINUE TO MONITOR.
--- NOTE | 2018-08-26 12:28 | NUR ---
LIGHTNING PROTECTION INSTALLER NOTES PATIENT REFUSED TO GO TO SNF. AMBULANCE WILL TAKE PATIENT TO [facility]. SLADE King#[phone] WAS INFORMED AND AGREES WITH DISCHARGE. FAXED REFERRAL TO [facility]. WILL FOLLOW UP
--- NOTE | 2018-08-26 12:46 | NUR ---
CHARGE NURSE NOTE: Pt is scheduled to be discharge home with home health. [facility] been [facility] up by CM. Patient refused to be transported by ambulance, she wants to order a taxi. notified.
--- NOTE | 2018-08-26 14:06 | NUR ---
NURSE NOTES: pt has discharge order, all discharge instructions and assessments done and pt verbally confirmed to understand all. pt is stable, V/S stable. pt supposed to D/C SNF report given to MAI WOODY is SNF but pt refused to go SNF so Dr GRANGER ordered home with [facility]. pt is notified. Pt ask to take taxi by herself. all belongings are checked with RN and are with pt. pt can't remember her address, cancelled discharge, will continue to monitor.
--- NOTE | 2018-08-26 17:33 | NUR ---
CHARGE NURSE NOTE: performed her psych.evaluation. She states that pt does not have capacity to make her own decisions. Pt should be discharged to SNF. .
--- NOTE | 2018-08-26 19:30 | NUR ---
HAND-OFF: Report given to RN BROOKE.
--- NOTE | 2018-08-26 19:40 | NUR ---
NURSE NOTES: RECEIVED PATIENT FROM MAI PATRICK. PT IS AWAKE, AAOX2. PT IS ON ROOM AIR, NO ACUTE DISTRESS NOTED. IV NOTED ON LEFT HAND 22G IS INTACT AND PATENT. BED IS LOCKED AT THE LOWEST POSITION, BED ALARM ACTIVE, SIDE RAILS UP X2, AND CALL LIGHT IS WITHIN REACH. WILL CONTINUE TO MONITOR.
--- NOTE | 2018-08-26 19:53 | Neurology Progress Note ---
Interim History Interim History ROS Limited/Unobtainable: Yes Complaints: Dizziness, now resolved Events: Neuro Exam Stable- MRI negative Interim History This visit was performed on August 26, [address] Moi Oakley. Review of Systems Neuro Review of Systems Confused, dementia and poor recent memory at baseline but non focal. Objective Physical Exam Last Vital Signs Date Time Temp Pulse Resp B/P (MAP) Pulse Ox O2 Delivery O2 Flow Rate FiO2 08/26/18 12:00 98.2 70 20 126/80 (95) 98 08/26/18 09:00 Room Air General: well developed, well nourished, no acute distress Head: normocophalic, atraumatic Neck: no rigidity EENT: benign Neurologic Exam Mental Status: awake, alert, normal remote memory, preserved visuospatial function Speech: normal speech, no dysarthia Language: normal language, no aphasia Cranial Nerve II: fundus normal, visual pearl, no papilledema Cranial Nerves III, IV, : PERRLA, EOMI, pupils Cranial Nerve V: normal facial sensations, temporales function normal, masseters function normal, pterygoids function normal Cranial Nerve VII: no facial asymmetry, normal facial expressions Cranial Nerve VIII: normal hearing, no nystagmus Cranial Nerve IX: normal palate elevation, gag response Cranial Nerve X: no voice hoarseness Cranial Nerve XI: SCM symmetric, trapezii function normal Cranial Nerve XII: tongue midline, no tongue atrophy/fasciculations Motor System: normal muscle tone, strength 5/5, no involuntary movement, no muscle wasting Sensory: normal pinprick, normal light touch, normal position sense, normal graphesthesia Coordination: normal finger to nose bilaterally, normal heel to tirado bilaterally, negative Romberg test Deep Tendon Reflexes: 2+ bicep (L), 2+ bicep (R), 2+ tricep (L), 2+ tricep (R) , 2+ brachioradialis (L), 2+ brachioradialis (R), 2+ knee (L), 2+ knee (R), 2+ ankle (L), 2+ ankle (R) Stance: normal Gait: stable, normal regular, heel + toe gait Objective 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 (3) Pneumonia Status: stable, progressing, tolerating diet, ambulating well, unchanged Diagnostic Impression Vertigo likely secondary to metabolic causes, now resolved. Recommendations Consider beginning Aricept/ Memantine for dementia at this time SBP< 140 Na 135-145 PT Eval Q 4 Neuro Obs Meclizine 25mg PRN TID for dizziness. Nilsa Mac N.P. Aug 26, 2018 19:53
[2018-08-26] MEDS: Latanoprost 0.005% Opth 2.5ml Soln BOTH EYES SCH (20:10)
--- NOTE | 2018-08-26 22:00 | NUR ---
NURSE NOTES: PT IS ANXIOUS, AGITATED, SUSPICIOUS, AND RESISTIVE TO CARE. REFUSED MEDS, ZYPREXA AND HEPARIN. ALSO REFUSED VITAL SIGNS, AND LAB DRAWS. WILL CONTINUE TO MONITOR.
[2018-08-27] VITALS: BP 134/70
--- NOTE | 2018-08-27 03:00 | Progress Note ---
NOTE: UNCLEAR AUDIO. DATE: 08/26/2018 SUBJECTIVE: The patient presents with disorganized behavior. She is easily agitated. The patient is responding to internal stimuli, has poor insight. The patient was more confused today. On seeing the patient the patient at 5 p.m., she was unable to plan. The patient wants to go back home. The patient is unable to understand, process, communicate, nor appreciate information given to her in regards to her medical condition. The son would like her to go to a SNF. MENTAL STATUS EXAMINATION: The patient is alert and oriented times to self and place. Mood is anxious. Affect is Thought process is concrete. Thought content, no suicidal or homicidal ideation. Memory is impaired. ASSESSMENT: Encephalopathy, dementia. The patient lacks capacity to make decisions. PLAN: 1. We will make decision about placement. 2. The patient needs to get anxiolytics prior to being discharged and discharge where the son is giving consent to. 3. Continue olanzapine 5 mg at bedtime. 4. Start the patient on Ativan p.r.n. 5. Continue to follow and readjust the medication. Dayday Diaz M.D. DR: KELLY JOB#: [id number] CC:
[2018-08-27 04:00] VITALS: BP 148/76
--- NOTE | 2018-08-27 07:47 | NUR ---
NURSE NOTES: Patient received sitting up by bedside, eating breakfast independently. Breathing unlabored on room air. No signs of SOB or pain observed. IV site on left hand observed. Fall precautions yellow socks and gown on. Bed locked in lowest position, call light placed within reach. Will continue to monitor.
--- NOTE | 2018-08-27 07:48 | NUR ---
HAND-OFF: Report given to MAI DONG.
[2018-08-27 08:00] VITALS: BP 150/91
[2018-08-27] MEDS: Heparin 5000 units/ml inj SUBQ SCH ×2 (09:00→21:13)
--- NOTE | 2018-08-27 10:30 | NUR ---
Social Service Note JOSE spoke with patient's son Santos [phone] and discussed the concern noted by lonny and . Son is not local however would be available in a few days. Son however states patient typically will not answer his call or opens the door when he or his granddgt visits. Son states patient has a conservator for her estate. SW encouraged son to assess for conservatorship of person. Son states if patient is not in agreement with SNF then to send patient home. Son is open to hiring caregivers however believes patient will not allow caregivers in the home. Will continue to monitor. Discussed with CM.
--- NOTE | 2018-08-27 10:44 | NUR ---
MUFFLE OPERATORSTATIONARY EQUIPMENT MECHANIC SI:VERTIGO . COGNITIVE IMPAIRMENT VS: BP 150/91, P 66, T 97.1, RR 22, SpO2 96 TSH 4.500 IS:HEPARIN SUBQ ZYPREXA 2.5mg MED/SURG STATUS
[2018-08-27 12:00] VITALS: BP 155/94
--- NOTE | 2018-08-27 14:37 | NUR ---
CHARGE NURSE NOTES: During the round Dr Diaz spoke to the Pt and confirmed that Pt doesn't have a capacity to make own decisions and has to be discharged to the SNF. Dr Johnson informed. Per ANDREY Villalpando, they were trying to get hold of Pt's son but unsuccessful. Tried calling Santos @ [phone]. Not answering, message can not be left. Dr Johnson is notified. Will wait for the further order.
--- NOTE | 2018-08-27 16:27 | NUR ---
CHARGE NURSE NOTES: Pt's son Santos called in and requested to speak to the mom. Offered to transfer call but Mr Santos insisted to have conversation on the speakerphone instead. Pt's son was trying to have conversation with the patient but patient was refusing son's involvement in her care. Mr Graham saying that prefers discharging Pt to SNF but mom is refusing. Pt's son is requesting to speak to the Dr Johnson. Dr Johnson informed and said will call back when get a chance
[2018-08-27] MEDS ORDERED: Haloperidol 5mg/ml Inj IM SCH (19:00)
[2018-08-27] MEDS ORDERED: LORazepam Inj 2mg/ml 1ml IM SCH (19:00)
--- NOTE | 2018-08-27 19:19 | General Progress Note ---
Assessment/Plan Assessment/Plan: #Possible Pneumonia on CXR although no SIRS or respiratory symptoms -Off Levaquin #Dizziness Negative CT head and MRI brain PT evaluation appreciated She seems back to baseline and ambulatory on the floor today #Generalized weakness #Cognitive impairment #Acute metabolic encephalopathy #Lack of decision making capacity -Psychiatry eval appreciated -Neurology consult appreciated -MRI brain negative -Patient refusing SNF and home health - unsafe discharge -Spoke with son today, possible inpatient psychiatry admission, will discuss with Psychiatry Subjective Date patient seen: Aug 27, 2018 Time patient seen: 08:37 ROS Limited/Unobtainable: Yes Cardiovascular: Denies: chest pain Respiratory: Denies: cough, shortness of breath Gastrointestinal/Abdominal: Denies: abdominal pain Allergies: Coded Allergies: PENICILLINS (Unverified Allergy, Unknown, 08/21/18) Subjective Follow up for possible pneumonia and dementia, acute metabolic encephalopathy. Intermittent agitation, refusing to go SNF. Objective Last 24 Hour Vital Signs Date Time Temp Pulse Resp B/P (MAP) Pulse Ox O2 Delivery O2 Flow Rate FiO2 08/27/18 12:00 97.0 64 23 155/94 (114) 99 08/27/18 09:00 Room Air 08/27/18 08:00 97.7 72 22 150/91 (110) 100 08/27/18 04:00 97.1 66 20 148/76 (100) 98 08/27/18 00:00 98.1 70 20 134/70 (91) 96 08/26/18 21:00 Room Air Intake and Output 08/26/18 08/27/18 18:59 06:59 Intake Total 840 ml 1040 ml Balance 840 ml 1040 ml Intake Oral 840 ml 240 ml Other 800 ml # Voids 3 3 Laboratory Tests 08/27/18 08:15: Thyroid Stimulating Hormone (TSH) 4.500H Height (Feet): 5 Height (Inches): 4.00 Weight (Pounds): 153 General Appearance: alert Neck: supple Cardiovascular: normal rate Respiratory/Chest: lungs clear, normal breath sounds Abdomen: non tender, soft Servando Odell MD Aug 27, 2018 19:19
--- NOTE | 2018-08-27 19:30 | NUR ---
NURSE NOTES: RECEIVED PATIENT SITTING IN CHAIR, AWAKE, ALERT/ORIENTED X2, CONFUSED/FORGETFUL, DENIES DIZZINESS, REALITY ORIENTATION PROVIDED DURING ASSESSMENT, DENIES PAIN. NO SIGNS AND SYMPTOMS OF ACUTE CARDIO RESPIRATORY DISTRESS/SHORTNESS OF BREATH, TRACE EDEMA NOTED. IV SITE INTACT TO LEFT HAND/GAUGE 22, NO REDNESS/SWELLING NOTED. PATIENT NOTED WITH UNSTEADY GAIT, ASSISTED TO BED WITHOUT DIFFICULTY, TOLERATED WELL. SIDE RAILS UP X3/BED IN LOWEST POSITION FOR SAFETY, ORIENTATED PATIENT TO CALL LIGHT. FALL PRECAUTIONS OBSERVED VIA YELLOW GOWN/SOCKS/SIGN. WILL CONTINUE WITH CURRENT PLAN OF CARE. NAD.
--- NOTE | 2018-08-27 19:32 | NUR ---
HAND-OFF: Report given to Irasema ASHFORD.
[2018-08-27 20:00] VITALS: BP 117/67
[2018-08-27] MEDS: Latanoprost 0.005% Opth 2.5ml Soln BOTH EYES SCH (21:06)
--- NOTE | 2018-08-27 23:53 | Neurology Progress Note ---
Interim History Interim History ROS Limited/Unobtainable: Yes Events: This visit was performed on August 27, [address] Moi Oakley. Interim History Patient D/C planning has changed given more acute levels of confusion in last couple of days. Objective Physical Exam Last Vital Signs Date Time Temp Pulse Resp B/P (MAP) Pulse Ox O2 Delivery O2 Flow Rate FiO2 08/27/18 20:00 98.4 74 20 117/67 (84) 95 08/27/18 09:00 Room Air Laboratory Tests Test 08/27/18 08:15 Thyroid Stimulating Hormone (TSH) 4.500 uiU/mL (0.358-3.740) General: well developed, well nourished, no acute distress Head: normocophalic Neck: no rigidity EENT: benign Neurologic Exam Mental Status: awake, alert, normal remote memory, preserved visuospatial function Speech: normal speech, no dysarthia Language: normal language, no aphasia Cranial Nerve II: fundus normal, visual pearl, no papilledema Cranial Nerves III, IV, : PERRLA, EOMI, pupils Cranial Nerve V: normal facial sensations, temporales function normal, masseters function normal, pterygoids function normal Cranial Nerve VII: no facial asymmetry, normal facial expressions Cranial Nerve VIII: normal hearing, no nystagmus Cranial Nerve IX: normal palate elevation, gag response Cranial Nerve X: no voice hoarseness Cranial Nerve XI: SCM symmetric, trapezii function normal Cranial Nerve XII: tongue midline, no tongue atrophy/fasciculations Motor System: normal muscle tone, strength 5/5, no involuntary movement, no muscle wasting Sensory: normal pinprick, normal light touch, normal position sense, normal graphesthesia Coordination: normal finger to nose bilaterally, normal heel to tirado bilaterally, negative Romberg test Deep Tendon Reflexes: 2+ bicep (L), 2+ bicep (R), 2+ tricep (L), 2+ tricep (R) , 2+ brachioradialis (L), 2+ brachioradialis (R), 2+ knee (L), 2+ knee (R), 2+ ankle (L), 2+ ankle (R) Stance: normal Gait: stable, normal regular, heel + toe gait Objective Patient has waxing and waning orientation and agitation. She remains strong and non focal, ambulatory. Impression/Recommendations Problems: (1) Dementia (2) Vertigo (3) Pneumonia (4) Delirium due to medical condition with behavioral disturbance (5) Delirium of mixed origin (6) Delirium with dementia (7) Delirium with fluctuating severity (8) Acute metabolic encephalopathy (9) History of intracerebral hemorrhage without residual deficit Status: stable Recommendations Maintain good sleep hygiene AVOID administration of benzodiazapenes, opioids, or anticholinergics (Haldol/ Zyprexa) Consider Seroquel and regularly scheduled Psych regimen Frequent reorientation for patient Maintain good sleep hygiene by making the room quiet and dark at night and limiting non essential care. Nilsa Mac N.P. Aug 27, 2018 23:53
[2018-08-28 04:00] VITALS: BP 130/74
--- NOTE | 2018-08-28 04:00 | Progress Note ---
DATE: 08/27/2018 SUBJECTIVE: The patient was more agitated and confused today. She was unable to provide any meaningful history. The patient and has poor memory. Arrangements the patient will be discharged home. The patient is not able to provide any . MENTAL STATUS EXAMINATION: The patient is alert, oriented times self and place. . Mood is agitated. Affect is flat. Thought process, there is a paucity of thought content. Thought content, no suicidal or homicidal ideation. The patient is delusional. Insight and judgment non-existent. ASSESSMENT: The patient lacks capacity to make decision. PLAN: . Dayday Diaz M.D. DR: ALEXI JOB#: [id number] CC:
--- NOTE | 2018-08-28 07:13 | NUR ---
HAND-OFF: Report given to MAI DONG.
--- NOTE | 2018-08-28 07:30 | NUR ---
NURSE NOTES: Received pt from MAI COLON. Pt is confused and orient x3. pt is RA, No SOB or acute respiratory distress noted. Pt has intact iv access LH 22g SL. all needs attended, bed is locked and is in the lowest position. call light within easy reach. will continue to monitor.
[2018-08-28] MEDS: Heparin 5000 units/ml inj SUBQ SCH ×2 (09:00→20:46)
[2018-08-28] MEDS: OLANZapine 2.5mg tab ORAL SCH (09:00)
--- NOTE | 2018-08-28 12:01 | NUR ---
NURSE NOTES: Pt refuses V/S and MEDS today, Dr MONTAGUE is aware, no new order to RN. will continue to monitor.
--- NOTE | 2018-08-28 12:17 | General Progress Note ---
Assessment/Plan Status: stable Assessment/Plan: #Possible Pneumonia on CXR although no SIRS or respiratory symptoms -Off Levaquin #Dizziness, resolved Negative CT head and MRI brain PT evaluation appreciated #Generalized weakness #Cognitive impairment #Acute metabolic encephalopathy #Lack of decision making capacity -Psychiatry eval appreciated -Neurology consult appreciated -MRI brain negative -Patient refusing SNF and home health - unsafe discharge, spoke with son and Psychiatry. Will pursue involuntary psychiatric placement. Will need risk management involvement Subjective Date patient seen: Aug 28, 2018 Time patient seen: 12:00 ROS Limited/Unobtainable: Yes Cardiovascular: Denies: chest pain Respiratory: Denies: cough Gastrointestinal/Abdominal: Denies: abdominal pain Allergies: Coded Allergies: PENICILLINS (Unverified Allergy, Unknown, 08/21/18) Subjective Follow up for possible pneumonia and dementia, acute metabolic encephalopathy. Intermittent agitation, refusing care. Refusing. Does not have decision making capacity per psych. Objective Last 24 Hour Vital Signs Date Time Temp Pulse Resp B/P (MAP) Pulse Ox O2 Delivery O2 Flow Rate FiO2 08/28/18 09:00 Room Air 08/28/18 04:00 97.2 56 18 130/74 (92) 98 08/27/18 21:00 Room Air 08/27/18 20:00 98.4 74 20 117/67 (84) 95 Intake and Output 08/27/18 08/28/18 19:00 07:00 Intake Total 600 ml Balance 600 ml Intake Oral 600 ml # Voids 6 4 Height (Feet): 5 Height (Inches): 4.00 Weight (Pounds): 153 General Appearance: no apparent distress, alert Neck: normal alignment Cardiovascular: normal peripheral pulses, normal rate, regular rhythm Respiratory/Chest: lungs clear, normal breath sounds Servando Odell MD Aug 28, 2018 12:17
--- NOTE | 2018-08-28 13:59 | NUR ---
Social Service Note SW referred patient to the following Erik-psych facilities: [place] [phone] (p) [phone] (f) [facility] [facility] [phone] (p) [phone] (f) [facility] [phone] (p) [phone] (f) [facility] [phone] (p) [phone] (f) Patient accepted for placement at [facility], per Mike. Pending ETA of clinician to assess for 5150 hold. Patient accepted for placement at [facility] however clinician would not be available until after 2200 or possibly the next morning. Anticipated dc to [facility]. Discussed with charge nurse.
--- NOTE | 2018-08-28 15:01 | NUR ---
Social Service Note ETA of clinician from [place] [address]. Accepting physician Dr. Bunn. Room assignment 917A. Ambulance placed on will-call with [facility] [phone]. Message left for son Santos [phone]. Nurse to inform son once patient is placed on hold. Charge nurse aware.
[2018-08-28 16:00] VITALS: BP 153/72
--- NOTE | 2018-08-28 17:59 | NUR ---
CHARGE NURSE NOTES: Received call from Dr Garsia inquiring what facility Pt had been accepted. Explained Pt had been accepted to [facility] and ambulance scheduled for 1829. Explained that message was left to the son. Per Dr Garsia discharge should be held until we will be able to talk to Pt's son. Primary nurse is made a multiple attempts to contact Pt's son but unsuccessful. Dr Johnson notified.
--- NOTE | 2018-08-28 18:25 | NUR ---
CHARGE NURSE NOTES: Called Santos Christy @ [phone], left message for the son
--- NOTE | 2018-08-28 18:31 | NUR ---
NURSE NOTES: RN called multiple times to pt's son YOUNG [phone], left massage no body answered and called back, Dr GRANGER and SIMONE BREWER are aware. will continue to monitor.
--- NOTE | 2018-08-28 19:16 | NUR ---
HAND-OFF: Report given to MAI COLON. Endorsed to FG/U with pt's son and if he called back, update Dr MONTAGUE and facility.
--- NOTE | 2018-08-28 19:30 | NUR ---
NURSE NOTES: RECEIVED PATIENT IN ROOM, AWAKE, ALERT/ORIENTED TO PERSON/PLACE, CONFUSED, VERY RESTLESS, DENIES EPISODES OF DIZZINESS. DENIES PAIN. NO SIGNS AND SYMPTOMS OF ACUTE CARDIO RESPIRATORY DISTRESS/SHORTNESS OF BREATH, DENIES CHEST PAIN, NOTED WITH TRACE EDEMA. NO COMPLAINTS OF GI DISCOMFORT, NO N/V/D. BATHROOM PRIVILEGES WITH ASSISTANCE, INCONTINENT AT TIMES. FALL PRECAUTIONS OBSERVED AT ALL TIMES. ENCOURAGED PATIENT TO UTILIZE CALL LIGHT FOR ASSISTANCE, VERBALIZED UNDERSTANDING. DISCHARGE TONIGHT TO [place] ONCE ETIENNE, PATIENT SON, HAS BEEN NOTIFIED. PER DR. GRANGER DISCHARGE HELD PENDING SON'S NOTIFICATION.
[2018-08-28 20:00] VITALS: BP 137/77
--- NOTE | 2018-08-28 20:04 | Neurology Progress Note ---
Interim History Interim History ROS Limited/Unobtainable: Yes Complaints: Dizziness, now resolved Events: This visit was performed on August 28, [address] Moi Oakley. Interim History Mixed levels of agitation and confusion as per nursing staff. Review of Systems All Systems: reviewed and negative except above Objective Physical Exam Last Vital Signs Date Time Temp Pulse Resp B/P (MAP) Pulse Ox O2 Delivery O2 Flow Rate FiO2 08/28/18 16:00 96.8 68 18 153/72 (99) 97 08/28/18 09:00 Room Air General: well developed, well nourished, no acute distress Head: normocophalic Neck: no rigidity EENT: benign Neurologic Exam Mental Status: awake, alert, normal remote memory, preserved visuospatial function Speech: normal speech, no dysarthia Language: normal language, no aphasia Cranial Nerve II: fundus normal, visual pearl, no papilledema Cranial Nerves III, IV, : PERRLA, EOMI, pupils Cranial Nerve V: normal facial sensations, temporales function normal, masseters function normal, pterygoids function normal Cranial Nerve VII: no facial asymmetry, normal facial expressions Cranial Nerve VIII: normal hearing, no nystagmus Cranial Nerve IX: normal palate elevation, gag response Cranial Nerve X: no voice hoarseness Cranial Nerve XI: SCM symmetric, trapezii function normal Cranial Nerve XII: tongue midline, no tongue atrophy/fasciculations Motor System: normal muscle tone, strength 5/5, no involuntary movement, no muscle wasting Sensory: normal pinprick, normal light touch, normal position sense, normal graphesthesia Coordination: normal finger to nose bilaterally, normal heel to tirado bilaterally, negative Romberg test Deep Tendon Reflexes: 2+ bicep (L), 2+ bicep (R), 2+ tricep (L), 2+ tricep (R) , 2+ brachioradialis (L), 2+ brachioradialis (R), 2+ knee (L), 2+ knee (R), 2+ ankle (L), 2+ ankle (R) Stance: normal Gait: stable, normal regular, heel + toe gait Objective Patient has waxing and waning orientation and agitation. She remains strong and non focal, ambulatory. Impression/Recommendations Problems: (1) Dementia (2) Vertigo (3) Pneumonia (4) Delirium due to medical condition with behavioral disturbance (5) Delirium of mixed origin (6) Delirium with dementia (7) Delirium with fluctuating severity (8) Acute metabolic encephalopathy (9) History of intracerebral hemorrhage without residual deficit Status: stable, progressing, tolerating diet, ambulating well, unchanged Diagnostic Impression Vertigo likely secondary to metabolic causes, now resolved. Recommendations Maintain good sleep hygiene AVOID administration of benzodiazapenes, opioids, or anticholinergics (Haldol/ Zyprexa) Consider Seroquel and regularly scheduled Psych regimen Frequent reorientation for patient Maintain good sleep hygiene by making the room quiet and dark at night and limiting non essential care. Psych following SBP<140 Na 135-145 Q4 hour Neuro obs D/C planning - home health vs SNF- patient is resistant to going back to SNF. Nilsa Mac N.P. Aug 28, 2018 20:04
--- NOTE | 2018-08-28 20:07 | NUR ---
NURSE NOTES: FOLLOW UP CALL PLACED TO PATIENT SON, ETIENNE, , LEFT MESSAGE ON VOICE MAIL REGARDING DISCHARGE PLAN TO [facility], WILL AWAIT RETURN CALL, PATIENT AWARE. PER DR. GRANGER, DISCHARGE ON HOLD UNTIL SON IS NOTIFIED.
--- NOTE | 2018-08-28 20:10 | NUR ---
Nurse'snotes: Left a VM at 1999 for Santos Christy, son of Ms. Andrade, for his okay to discharge patient to [facility] where she was accepted. awaiting callback
[2018-08-28] MEDS: Latanoprost 0.005% Opth 2.5ml Soln BOTH EYES SCH (20:42)
--- NOTE | 2018-08-28 21:30 | NUR ---
NURSE NOTES: THIRD MESSAGE LEFT ON VOICE MAIL OF ETIENNE, PATIENT SON; DISCHARGE PENDING SON'S NOTIFICATION.
[2018-08-29] VITALS: BP 124/73
--- NOTE | 2018-08-29 01:15 | Progress Note ---
DATE: 08/28/2018 SUBJECTIVE: The patient has poor insight and judgment. Continues to want to go to her house. The son is against the patient is going to a fpc. The patient has poor insight and judgment. Concentration insight. The patient is easily agitated and delusional. MENTAL STATUS EXAMINATION: The patient is alert and oriented to time, self, place, and poor insight and to situation. Mood is agitated and irritable. Affect is constricted. Congruent mood. Thought process is concrete. Thought content, no suicidal or homicidal ideation. ASSESSMENT AND PLAN: Dementia with behavioral disturbance. The patient lacks capacity to make decision. Follow up with . today. We decided to send the patient to psychiatric unit. Dayday Diaz M.D. DR: SACHA JOB#: [id number] CC:
[2018-08-29 04:00] VITALS: BP 120/72
--- NOTE | 2018-08-29 06:37 | NUR ---
NURSE NOTES: NO RETURN CALL FROM PATIENT'S SON, ETIENNE, WILL ENDORSE TO AM NURSE TO FOLLOW UP. RESTED WELL THROUGHOUT THE NIGHT. SAFETY MAINTAINED. NAD.
--- NOTE | 2018-08-29 07:30 | NUR ---
NURSE NOTES: Pt is alert and orient x4. pt is RA, No SOB or acute respiratory distress noted. Pt has intact iv access LH 22g SL. pt is eating breakfast. all needs attended, bed is locked and is in the lowest position. call light within easy reach. will continue to monitor.
--- NOTE | 2018-08-29 07:47 | NUR ---
HAND-OFF: Report given to TERRISOON.
[2018-08-29 08:00] VITALS: BP 120/72
--- NOTE | 2018-08-29 08:45 | NUR ---
NURSE NOTES: pt refuses to go to the psych facility, pt spoke with her son YOUNG and refused to go to the psych facility, charge nurse GHADA and table games floor supervisor notified. will continue to monitor.
--- NOTE | 2018-08-29 08:54 | NUR ---
NURSE NOTES: Son Bakari spoke to MAI Holder and patient. Patient states she does not want to go to the facility. Patient son does nto want to send her to a facility she doesnt agree with. Message left with MD Garsia. Awaiting any further orders. Addendum: 08/29/18 at 0938 by GHADA TAYLOR RN RN MD Garsia stated he is off. A message was then sent to message center of MD [place].
--- NOTE | 2018-08-29 08:54 | NUR ---
INTER-FACILITY TRANSFER: Patient transferred to [], per []. Report given to []. Patient transferred with valuables and medications. Belongings verified upon transferr and given to[]. Family/S.O. notified of transfer.
[2018-08-29] MEDS: OLANZapine 2.5mg tab ORAL SCH (09:00)
[2018-08-29] MEDS: Heparin 5000 units/ml inj SUBQ SCH ×2 (09:00→20:08)
--- NOTE | 2018-08-29 10:23 | NUR ---
NURSE NOTES: MD Montgomery returned call and stated to update Dr. mcnamara. he will not discharge patient home.
--- NOTE | 2018-08-29 11:23 | NUR ---
NURSE NOTES: Patient refused EEG. Risks versus benefits explained. Patient still refused test.
[2018-08-29 12:00] VITALS: BP 132/78
--- NOTE | 2018-08-29 12:45 | General Progress Note ---
Assessment/Plan Status: stable, progressing, tolerating diet, ambulating well, unchanged Assessment/Plan: # Pneumonia CXR with RLL infiltrate. Patient home medication included levofloxacin which was given in the ED. Azithromycin 500 mg 08/22 and will continue 250 mg daily x4 Monitor clinical response. Improved. #Dizziness Negative CT head, PT evaluation She seems back to baseline and ambulatory on the floor today # Generalized weakness PT evaluation OT evaluation # Glaucoma Resume Latanoprost 1 gtt to each eye tonight # Penicillin allergy # FULL CODE # Disposition Lives in [address] apt in [facility] and per psychiatry she is not safe to live alone. Psychiatry facility was declined by her son and will need to address with SW if he is DPOA vs APS intervention Will need to discuss with Dr. Diaz for next steps in care and safety at discharge. Patient not stable to discharge today. Subjective Allergies: Coded Allergies: PENICILLINS (Unverified Allergy, Unknown, 08/21/18) Subjective Patient is able to carry a conversation. Reports living in [facility] for 8 years on her own. 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 Her son lives out of town in [facility] ( 2 homes ). She asks about talking to the police since we keep discussing her safety. She refuses to go to anywhere but home. No fpc or psychiatry facility. Objective Last 24 Hour Vital Signs Date Time Temp Pulse Resp B/P (MAP) Pulse Ox O2 Delivery O2 Flow Rate FiO2 08/29/18 12:00 98.2 80 18 132/78 (96) 98 08/29/18 09:00 Room Air 08/29/18 08:00 98.4 74 17 120/72 (88) 98 08/29/18 04:00 97.5 65 18 120/72 (88) 99 08/29/18 00:00 97.1 82 18 124/73 (90) 97 08/28/18 21:00 Room Air 08/28/18 20:00 97.7 86 16 137/77 (97) 100 08/28/18 16:00 96.8 68 18 153/72 (99) 97 Intake and Output 08/28/18 08/29/18 19:00 07:00 Intake Total 360 ml 360 ml Balance 360 ml 360 ml Intake Oral 360 ml 360 ml # Voids 4 Height (Feet): 5 Height (Inches): 4.00 Weight (Pounds): 153 General Appearance: WD/WN, no apparent distress, alert EENT: PERRL/EOMI Neck: non-tender, normal alignment Cardiovascular: normal peripheral pulses, normal rate Respiratory/Chest: chest wall non-tender, lungs clear Abdomen: soft 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
[2018-08-29 16:00] VITALS: BP 124/73
--- NOTE | 2018-08-29 19:19 | NUR ---
HAND-OFF: Report given to MAI COLON.
[2018-08-29 20:00] VITALS: BP 117/66
[2018-08-29] MEDS: Latanoprost 0.005% Opth 2.5ml Soln BOTH EYES SCH (20:09)
--- NOTE | 2018-08-29 23:43 | Neurology Progress Note ---
Interim History Interim History ROS Limited/Unobtainable: Yes Complaints: Dizziness, now resolved Events: This visit was performed on August 28, [address] Moi Oakley. Objective Physical Exam Last Vital Signs Date Time Temp Pulse Resp B/P (MAP) Pulse Ox O2 Delivery O2 Flow Rate FiO2 08/29/18 21:00 Room Air 08/29/18 20:00 98.3 68 18 117/66 (83) 96 General: well developed, well nourished, no acute distress Head: normocophalic Neck: no rigidity EENT: benign Neurologic Exam Mental Status: awake, alert, normal remote memory, preserved visuospatial function Speech: normal speech, no dysarthia Language: normal language, no aphasia Cranial Nerve II: fundus normal, visual pearl, no papilledema Cranial Nerves III, IV, : PERRLA, EOMI, pupils Cranial Nerve V: normal facial sensations, temporales function normal, masseters function normal, pterygoids function normal Cranial Nerve VII: no facial asymmetry, normal facial expressions Cranial Nerve VIII: normal hearing, no nystagmus Cranial Nerve IX: normal palate elevation, gag response Cranial Nerve X: no voice hoarseness Cranial Nerve XI: SCM symmetric, trapezii function normal Cranial Nerve XII: tongue midline, no tongue atrophy/fasciculations Motor System: normal muscle tone, strength 5/5, no involuntary movement, no muscle wasting Sensory: normal pinprick, normal light touch, normal position sense, normal graphesthesia Coordination: normal finger to nose bilaterally, normal heel to tirado bilaterally, negative Romberg test Deep Tendon Reflexes: 2+ bicep (L), 2+ bicep (R), 2+ tricep (L), 2+ tricep (R) , 2+ brachioradialis (L), 2+ brachioradialis (R), 2+ knee (L), 2+ knee (R), 2+ ankle (L), 2+ ankle (R) Stance: normal Gait: stable, normal regular, heel + toe gait Objective Patient has waxing and waning orientation and agitation. She remains strong and non focal, ambulatory. Impression/Recommendations Problems: (1) Dementia (2) Vertigo (3) Pneumonia (4) Delirium due to medical condition with behavioral disturbance (5) Delirium of mixed origin (6) Delirium with dementia (7) Delirium with fluctuating severity (8) Acute metabolic encephalopathy (9) History of intracerebral hemorrhage without residual deficit Status: stable, progressing, tolerating diet, ambulating well, unchanged Diagnostic Impression Vertigo likely secondary to metabolic causes, now resolved. Recommendations Maintain good sleep hygiene AVOID administration of benzodiazapenes, opioids, or anticholinergics (Haldol/ Zyprexa) Consider Seroquel and regularly scheduled Psych regimen Frequent reorientation for patient Maintain good sleep hygiene by making the room quiet and dark at night and limiting non essential care. Psych following SBP<140 Na 135-145 Q4 hour Neuro obs D/C planning - home health vs SNF- patient is resistant to going back to SNF. Nilsa Mac N.P. Aug 29, 2018 23:43
[2018-08-30 04:00] VITALS: BP 141/71
--- NOTE | 2018-08-30 06:13 | NUR ---
NURSE NOTES: RESTED WELL, NO SIGNIFICANT CHANGE OF CONDITION NOTED THROUGHOUT THE NIGHT. SAFETY MAINTAINED. NAD.
--- NOTE | 2018-08-30 06:40 | NUR ---
NURSE NOTES: RESTED WELL, NO SIGNIFICANT CHANGE OF CONDITION NOTED THROUGHOUT THE NIGHT. SAFETY MAINTAINED. NAD.
[2018-08-30 08:00] VITALS: BP 127/53
--- NOTE | 2018-08-30 08:23 | NUR ---
NURSE NOTES: Patient is awake and alert,respirations unlabored,patient sitting up eating breakfast,no complaints at this time.Call light within reach.
[2018-08-30] MEDS: OLANZapine 2.5mg tab ORAL SCH (08:26)
[2018-08-30] MEDS: Heparin 5000 units/ml inj SUBQ SCH ×2 (08:26→21:00)
--- NOTE | 2018-08-30 09:00 | General Progress Note ---
Assessment/Plan Status: stable, progressing, tolerating diet, ambulating well, unchanged Assessment/Plan: # Pneumonia CXR with RLL infiltrate. Patient completed 5 day treatment and is resolved. #Dizziness Negative CT head, PT evaluation noted. Back to baseline and ambulatory on the floor. # Generalized weakness PT evaluation OT evaluation # Glaucoma Resume Latanoprost 1 gtt to each eye tonight # Penicillin allergy # Dementia with poor insight and lack of judgement. # FULL CODE # Disposition Lives in 1 B apt in [facility] and per psychiatry she is not safe to live alone. Psychiatry facility was declined by her son and will need to address with SW if he is DPOA vs APS intervention Will need to discuss with Dr. Diaz for next steps in care and safety at discharge. Involuntary discharge to psychiatry facility process as needed. Patient not stable to discharge today. Left voicemail for son Santos to call me back and discuss. Subjective ROS Limited/Unobtainable: Yes Allergies: Coded Allergies: PENICILLINS (Unverified Allergy, Unknown, 08/21/18) Subjective Patient is able to carry a conversation. Reports living in [facility] for 8 years on her own. 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 Her son lives out of town in [facility] ( 2 homes ). She asks about talking to the police since we keep discussing her safety. She refuses to go to anywhere but home. No custodial or psychiatry facility. Objective Last 24 Hour Vital Signs Date Time Temp Pulse Resp B/P (MAP) Pulse Ox O2 Delivery O2 Flow Rate FiO2 08/30/18 04:00 98.7 63 18 141/71 (94) 97 08/29/18 21:00 Room Air 08/29/18 20:00 98.3 68 18 117/66 (83) 96 08/29/18 16:00 98.6 79 18 124/73 (90) 96 08/29/18 12:00 98.2 80 18 132/78 (96) 98 08/29/18 09:00 Room Air Intake and Output 08/29/18 08/30/18 19:00 07:00 Intake Total 600 ml 120 ml Balance 600 ml 120 ml Intake Oral 600 ml 120 ml # Voids 7 3 Height (Feet): 5 Height (Inches): 4.00 Weight (Pounds): 153 General Appearance: WD/WN, no apparent distress, other - she continues to want to go home and is not able to describe her home safety and plan of care EENT: PERRL/EOMI Neck: non-tender Cardiovascular: normal peripheral pulses, normal rate Respiratory/Chest: normal breath sounds, decreased breath sounds Abdomen: normal bowel sounds, non tender 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
[2018-08-30 12:15] VITALS: BP 124/81
[2018-08-30 16:00] VITALS: BP 127/86
--- NOTE | 2018-08-30 18:58 | NUR ---
NURSE NOTES: Patient resting ,watching TV,no complaints at this time.Call light within reach.
--- NOTE | 2018-08-30 19:00 | NUR ---
Pt awake alert oriented x3 no acute distress noted pt on room air. Iv to right hand intact no infiltration noted. Pt ambulate on floor. pt remain free of falls.pt voiding freely. pt denies sob chest pain no dizziness noted at this time. will continue to monitor patient condition.=
--- NOTE | 2018-08-30 19:45 | NUR ---
HAND-OFF: Report given to Nasrin ONEILL.
[2018-08-30 20:00] VITALS: BP 130/88
[2018-08-30] MEDS: Latanoprost 0.005% Opth 2.5ml Soln BOTH EYES SCH (21:50)
--- NOTE | 2018-08-30 23:57 | Neurology Progress Note ---
Interim History Interim History ROS Limited/Unobtainable: Yes Complaints: Dizziness, now resolved Events: This visit was performed on August 28, [address] Moi Oakley. Objective Physical Exam Last Vital Signs Date Time Temp Pulse Resp B/P (MAP) Pulse Ox O2 Delivery O2 Flow Rate FiO2 08/30/18 16:00 98.0 79 18 127/86 (100) 99 08/30/18 09:00 Room Air General: well developed, well nourished, no acute distress Head: normocophalic Neck: no rigidity EENT: benign Neurologic Exam Mental Status: awake, alert, normal remote memory, preserved visuospatial function Speech: normal speech, no dysarthia Language: normal language, no aphasia Cranial Nerve II: fundus normal, visual pearl, no papilledema Cranial Nerves III, IV, : PERRLA, EOMI, pupils Cranial Nerve V: normal facial sensations, temporales function normal, masseters function normal, pterygoids function normal Cranial Nerve VII: no facial asymmetry, normal facial expressions Cranial Nerve VIII: normal hearing, no nystagmus Cranial Nerve IX: normal palate elevation, gag response Cranial Nerve X: no voice hoarseness Cranial Nerve XI: SCM symmetric, trapezii function normal Cranial Nerve XII: tongue midline, no tongue atrophy/fasciculations Motor System: normal muscle tone, strength 5/5, no involuntary movement, no muscle wasting Sensory: normal pinprick, normal light touch, normal position sense, normal graphesthesia Coordination: normal finger to nose bilaterally, normal heel to tirado bilaterally, negative Romberg test Deep Tendon Reflexes: 2+ bicep (L), 2+ bicep (R), 2+ tricep (L), 2+ tricep (R) , 2+ brachioradialis (L), 2+ brachioradialis (R), 2+ knee (L), 2+ knee (R), 2+ ankle (L), 2+ ankle (R) Stance: normal Gait: stable, normal regular, heel + toe gait Objective Patient has waxing and waning orientation and agitation. She remains strong and non focal, ambulatory. Impression/Recommendations Problems: (1) Dementia (2) Vertigo (3) Pneumonia (4) Delirium due to medical condition with behavioral disturbance (5) Delirium of mixed origin (6) Delirium with dementia (7) Delirium with fluctuating severity (8) Acute metabolic encephalopathy (9) History of intracerebral hemorrhage without residual deficit Status: stable, progressing, tolerating diet, ambulating well, unchanged Diagnostic Impression Vertigo likely secondary to metabolic causes, now resolved. Recommendations Maintain good sleep hygiene AVOID administration of benzodiazapenes, opioids, or anticholinergics (Haldol/ Zyprexa) Consider Seroquel and regularly scheduled Psych regimen Frequent reorientation for patient Maintain good sleep hygiene by making the room quiet and dark at night and limiting non essential care. Psych following SBP<140 Na 135-145 Q4 hour Neuro obs D/C planning - home health vs SNF- patient is resistant to going back to SNF. Nilsa Mac N.P. Aug 30, 2018 23:57
[2018-08-31] VITALS: BP 142/72
[2018-08-31 04:00] VITALS: BP 130/74
--- NOTE | 2018-08-31 07:57 | NUR ---
NURSE NOTES: Handoff report received from MAI Alexandra. Patient observed sitting in the chair by the bedside, watching TV. Patient is calm but confused. IV site at left hand is intact.
[2018-08-31 08:00] VITALS: BP 114/67
[2018-08-31] MEDS: Heparin 5000 units/ml inj SUBQ SCH (08:59)
[2018-08-31] MEDS: OLANZapine 2.5mg tab ORAL SCH (08:59)
[2018-08-31 12:00] VITALS: BP 130/73
--- NOTE | 2018-08-31 13:16 | General Progress Note ---
Assessment/Plan Status: stable, progressing, tolerating diet, ambulating well, unchanged Assessment/Plan: # Pneumonia CXR with RLL infiltrate. Patient completed 5 day treatment and is resolved. #Dizziness Negative CT head, PT evaluation noted. Back to baseline and ambulatory on the floor. # Generalized weakness PT evaluation OT evaluation # Glaucoma Resume Latanoprost 1 gtt to each eye tonight # Penicillin allergy # Dementia with poor insight and lack of judgement. I discussed with JOSE Day and psychiatrist Dr. Diaz. The patient was placed on 5150 HOLD last Friday and dc was stopped by Dr. Johnson after the patient son refused. Per discussion with JOSE, [facility] referral and [facility]. Discharge orders in place PENDING BED PLACEMENT and approval by service. # FULL CODE # Disposition Lives in 1 B apt in [facility] and per psychiatry she is not safe to live alone. Psychiatry facility was declined by her son and will need to address with SW if he is DPOA vs APS intervention son Santos [phone] to call me back and discuss. Subjective ROS Limited/Unobtainable: Yes Allergies: Coded Allergies: PENICILLINS (Unverified Allergy, Unknown, 08/21/18) Subjective Patient is able to carry a conversation. Reports living in [place] for 8 years on her own. She has [employer] and has had falls in the past while living alone. Her son lives out of town in [place] ( 2 homes ). She asks about talking to the police since we keep discussing her safety. She refuses to go to anywhere but home. No long-term or psychiatry facility. Objective Last 24 Hour Vital Signs Date Time Temp Pulse Resp B/P (MAP) Pulse Ox O2 Delivery O2 Flow Rate FiO2 08/31/18 09:00 Room Air 08/31/18 08:00 97.6 85 20 114/67 (83) 99 08/31/18 04:00 98.0 20 130/74 (92) 99 08/31/18 00:00 97.9 79 18 142/72 (95) 99 08/30/18 21:00 Room Air 08/30/18 20:00 98.2 77 18 130/88 (102) 98 08/30/18 16:00 98.0 79 18 127/86 (100) 99 Intake and Output 08/30/18 08/31/18 19:00 07:00 Intake Total 720 ml 120 ml Balance 720 ml 120 ml Intake Oral 720 ml Other 120 ml # Bowel Movements 1 Height (Feet): 5 Height (Inches): 4.00 Weight (Pounds): 153 General Appearance: WD/WN EENT: PERRL/EOMI Neck: non-tender, normal alignment Cardiovascular: normal peripheral pulses, normal rate Respiratory/Chest: chest wall non-tender, lungs clear 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
--- NOTE | 2018-08-31 14:35 | NUR ---
RESEARCH AND EVALUATION ANALYSTREFUELING RAMPMAN SI:ACUTE METABOLIC ENCEPHALOPATHY VS: BP 142/72, P 20, T 97.3, RR 20, SpO2 98 IS:HEPARIN SUBQ ZYPREXA 2.5mg ANTIVERT 25mg MED/SURG STATUS
--- NOTE | 2018-08-31 15:11 | NUR ---
Social Service Note JOSE has spoken with patient's son Santos [phone] multiple times throughout today regarding the anticipated transfer of patient to an inpatient psychiatric facility. Patient was evaluated on Friday by [facility] however wasn't transferred. Son requesting referral to [facility]. JOSE explained that [facility] doesn't have a clinician to place a patient on a hold and patient would need to transfer on a voluntary basis. JOSE explained patient has continuously refused transfer to anywhere but home. Son is in agreement that home without 24 hour supervision is not appropriate. Son states even if he was available patient would never go home with him and allow a caregiver to reside in her home. Referral faxed to [facility] [phone] (P) [phone] (f). Patient received however no available beds or known availability. JOSE followed up with [facility] [phone]. [facility] willing [facility] accept however are requesting new labs. Patient is refusing lab draw. JOSE followed up with [facility] [phone]. Patient accepted, Dr. Bunn room 900F. Clinician will be sent out after 5pm. Ambulance on will-call. JOSE informed patient's son. Son requesting for patient to stay until bed becomes available at [facility]. JOSE explained that this wasn't an option, patient needs need to be met in an Erik-psych environment. JOSE discussed conservatorship of self, and assisted living placement for individuals with Alzheimer's/dementia. Director notified that son is requesting to speak with her. JOSE informed charge nurse of impending dc plan. JOSE also discussed with Dr. Montgomery.
--- NOTE | 2018-08-31 17:26 | NUR ---
SC[facility] TREATMENT SPECIALIST NOTES SPOKE WITH PATIENTS SON YOUNG,EXPLAINED TO HIM THE DISCHARGE PROCESS. PT NO LONGER MEETS CRITERIA FOR CONTINUED MEDICAL CARE.PT IS STABLE FOR DISCHARGE TO THE APPROPRIATE PLACE. YOUNG IS REQUESTING ANOTHER 3 DAY STAY UNTIL A BED AT [facility] OPENS UP. I EXPLAINED TO YOUNG I CAN'T HOLD A PATIENT IN HOUSE WITH NO MEDICAL NECESSITY. I REMINDED YOUNG PT WILL BE SEEN BY A CLINICIAN JAVIER AND TRANSFERRED WHEN BED AVAILABLE. YOUNG VERBALIZED UNDERSTANDING HOWEVER HE CONTINUES TO REQUEST CONTINUED STAY UNTIL BED IS AVAILABLE AT [facility]. I ASKED WAS HE AVAILABLE TO COME STAY WITH PT AT HOME UNTIL BED BECOMES AVAILABLE, YOUNG STATED HE CAN NOT COME TO CARE FOR HIS MOM. PT TO BE ASSESSED BY PSYCH PER MD ORDER AND TRANSFERRED TO A PSYCH FACILITY FOR MANAGEMENT. I ENCOURAGED YOUNG TO BEGIN TO LOOK FOR ALTERNATIVE PLACEMENT FOR MOM UPON DISCHARGE FROM PSYCH FACILITY SHE IS DEEMED UNABLE TO CONTRACT FOR SAFETY.
--- NOTE | 2018-08-31 19:32 | NUR ---
NURSE NOTES: Patient is awaiting to be transferred to [facility] to room 906 B, report is given to Arely ONEILL at the facility. Patient is ambulating in the hallway, confused, disoriented, no acute distress noted or reported, awaiting ambulance arrival.
--- NOTE | 2018-08-31 19:32 | NUR ---
HAND-OFF: Report given to MAI Simms.
--- NOTE | 2018-08-31 20:33 | NUR ---
NURSE NOTES: Patient is discharged to [facility] via ambulance, belongings were accounted and signed for, report is given to ambulance staff.
--- NOTE | 2018-09-01 | Progress Note ---
DATE: 08/31/2018 SUBJECTIVE: The patient continues to be disoriented, confused, wandering around the unit. She is delusional, responds to internal stimuli, not able to provide any history. MENTAL STATUS EXAMINATION: The patient is alert, confused, disoriented, agitated. Mood is agitated. Affect is flat. Thought process, there is a paucity of thought content. Thought content, no suicidal or homicidal ideation. The patient is delusional and responds to internal stimuli. Insight and judgment impaired. ASSESSMENT: Dementia with behavior disturbance, rule out schizophrenia. PLAN: The patient will be continued on current medication. The patient will be transferred to the psychiatric unit. Dayday Diaz M.D. DR: BRENDA JOB#: [id number] CC:
== END 2018-08-31 20:35 | DRG 193 ==
LOC: EDBD 22:18 → EMR 22:48 → 4E 08-22 02:00 → EDBEDREQ 08-22 02:35 → 4E 08-22 03:01
DX: J18.9 Pneumonia, unspecified organism (principal); G93.41 Metabolic encephalopathy; F03.91 Unspecified dementia, unspecified severity, with behavioral disturbance; F05 Delirium due to known physiological condition; R42 Dizziness and giddiness; Z88.0 Allergy status to penicillin; H40.9 Unspecified glaucoma
CPT/HCPCS: 36415; 70450; 70551; 71045; 80048; 80053; 81003; 82550; 82553; 83605; 84443; 84484; 85025; 87040; 93005; 96374; 99282; 99285; J2765